=== PATIENT | female | born 1980 | race Caucasian/White ===

== ENCOUNTER 2017-08-14 03:18 | Emergency (ER) | payer MEDICAID ==
[~2017-08-14] VITALS: Ht 167.6 cm; Wt 67.5 kg
[~2017-08-14 03:18] MED LIST: DOCU-28 PO; NO HOME MEDS; PANT20TA2 PO; ZIPR20CA2 PO
[2017-08-14 03:24] VITALS: BP 139/52
[2017-08-14] MEDS ORDERED: ondansetron/PF 4mg/2ml inj IM ONE (03:45)
[2017-08-14] MEDS ORDERED: LORazepam 2 mg/ml vial IM ONE (03:50)
== END 2017-08-14 04:50 | disposition home or self-care (01) ==
LOC: ER 03:18
DX: F41.9 Anxiety disorder, unspecified (principal); Z90.49 Acquired absence of other specified parts of digestive tract; Z90.710 Acquired absence of both cervix and uterus; Z98.890 Other specified postprocedural states; Z88.5 Allergy status to narcotic agent; Z79.899 Other long term (current) drug therapy; Z88.8 Allergy status to other drugs, medicaments and biological substances
CPT/HCPCS: 96372; 99284; J2060; J2405

== ENCOUNTER 2023-06-28 14:19 | Emergency (ER) | payer MEDICAID ==
[~2023-06-28] VITALS: Ht 167.6 cm; Wt 75.1 kg
[~2023-06-28 14:19] MED LIST changes: +ALPR1TAB7 PO; +ARIP20TA4 PO; +BUSP15TA8 PO; -DOCU-28 PO; -NO HOME MEDS; +ONDA4TAB6 PO; -PANT20TA2 PO; +PROP10TA10 PO; -ZIPR20CA2 PO
[2023-06-28 14:34] VITALS: TEMP 97
[2023-06-28] MEDS ORDERED: ondansetron/PF 4mg/2ml inj IV ONE ×2 (14:40→16:15)
[2023-06-28] MEDS ORDERED: normal saline 1000ml 1,000 ML IV ONE ×3 (14:40→16:20)
[2023-06-28 15:14] LABS: BASOPHILS % (AUTO) 0.2 % (0-1); EOSINOPHILS % (AUTO) 0 % (0-6); HEMATOCRIT 47.1 % (35.0-45.0); LYMPHOCYTES # (AUTO) 1.2 X10'3 (1.1-4.8); LYMPHOCYTES % (AUTO) 14.3 % (21-51); MEAN CORPUSCULAR HEMOGLOBIN 31.7 PG (27.0-31.0); MEAN CORPUSCULAR HGB CONC 33.9 g/dL (33.0-36.5); MEAN CORPUSCULAR VOLUME 93.7 FL (78-98); MEAN PLATELET VOLUME 10.1 FL (7.4-10.4); MONOCYTES # (AUTO) 0.3 X10'3 (0-0.9); MONOCYTES % (AUTO) 3.9 % (2-12); NEUTROPHILS # (AUTO) 7.1 X10'3 (1.8-7.7); NEUTROPHILS % (AUTO) 81.6 % (42-75); PLATELET COUNT 244 X10'3 (140-440); RED BLOOD COUNT 5.03 X10'6 (4.20-5.60); RED CELL DISTRIBUTION WIDTH 13.1 % (11.5-14.5); WHITE BLOOD COUNT 8.7 X10'3 (4.5-11.0)
[2023-06-28 15:26] LABS: APTT 22 SECONDS (22-32); PROTHROMBIN TIME 10.3 SECONDS (9.0-12.0)
[2023-06-28 15:27] LABS: ALANINE AMINOTRANSFERASE 51 U/L (12-78); ALBUMIN 4.5 G/DL (3.4-5.0); ALBUMIN/GLOBULIN RATIO 1.2 (1.1-1.5); ALKALINE PHOSPHATASE 78 IU/L (46-116); AMYLASE 23 U/L (25-115); ANION GAP 15 (8-16); ASPARTATE AMINO TRANSFERASE 25 U/L (10-37); BILIRUBIN,TOTAL 0.7 MG/DL (0.1-1.0); BLOOD UREA NITROGEN 11 MG/DL (7-18); BUN/CREATININE RATIO 14.5 (10.0-20.0); CALCIUM 10.4 MG/DL (8.5-10.1); CHLORIDE 99 MMOL/L (99-107); CREATININE 0.76 MG/DL (0.40-0.90); GLUCOSE 135 MG/DL (70-104); LIPASE 20 U/L (16-77); POTASSIUM 3.2 MMOL/L (3.5-5.1); SODIUM 141 MMOL/L (135-145); TOTAL CARBON DIOXIDE 26.9 MMOL/L (24-32); TOTAL PROTEIN 8.3 G/DL (6.4-8.2); eCRCL 89 ML/MIN; eGFR 83 ML/MIN
[2023-06-28] MEDS ORDERED: pantoprazole 40 MG vial IV ONE (16:20)
[2023-06-28] MEDS ORDERED: pantoprazole 40 MG vial IV SCH (16:20)
[2023-06-28] MEDS ORDERED: potassium Cl 20 mEq SR tablet PO STA ×2 (16:20→17:30)
[2023-06-28] MEDS ORDERED: ONDA4TAB12 PO ×2 (17:09)
[2023-06-28] MEDS ORDERED: PANT-47 PO (17:09)
[2023-06-28] MEDS ORDERED: proCHLORperazine 10 MG/2 ml inj IV ONE (17:20)
[2023-06-28] MEDS ORDERED: diphenhydrAMINE 50 mg/ml inj IV ONE (17:20)
[2023-06-28 18:45] VITALS: BP 117/87; PULSE 62; RESP 16; O2SAT 100
[2023-07-05] MEDS ORDERED: PANT-47 PO (12:06)
== END 2023-06-28 19:12 | disposition home or self-care (01) ==
LOC: ER 14:20
DX: K29.00 Acute gastritis without bleeding (principal); F12.10 Cannabis abuse, uncomplicated; Z88.8 Allergy status to other drugs, medicaments and biological substances; Z79.899 Other long term (current) drug therapy
CPT/HCPCS: 36415; 71045; 80053; 82150; 83690; 85025; 85610; 85730; 96361; 96374; 96375; 99284; C9113; J0780; J1200; J2405; J7030

== ENCOUNTER 2023-12-07 13:01 | Emergency (ER) | payer MEDICAID ==
[~2023-12-07] VITALS: Ht 167.6 cm; Wt 77.9 kg
[~2023-12-07 13:01] MED LIST changes: +PANT-47 PO
[2023-12-07 14:05] LABS: BASOPHILS % (AUTO) 0.2 % (0-1); HEMATOCRIT 45.2 % (35.0-45.0); HEMOGLOBIN 15.3 g/dl (12.0-16.0); LYMPHOCYTES # (AUTO) 2.2 X10'3 (1.1-4.8); MEAN CORPUSCULAR HEMOGLOBIN 31.8 PG (27.0-31.0); MEAN CORPUSCULAR HGB CONC 33.9 g/dL (33.0-36.5); MONOCYTES # (AUTO) 0.7 X10'3 (0-0.9)
[2023-12-07 14:07] LABS: EOSINOPHILS % (AUTO) 0.2 % (0-6); LYMPHOCYTES % (AUTO) 29.8 % (21-51); MEAN CORPUSCULAR VOLUME 93.8 FL (78-98); MEAN PLATELET VOLUME 10.5 FL (7.4-10.4); MONOCYTES % (AUTO) 9.5 % (2-12); NEUTROPHILS # (AUTO) 4.5 X10'3 (1.8-7.7); NEUTROPHILS % (AUTO) 60.3 % (42-75); PLATELET COUNT 221 X10'3 (140-440); RED BLOOD COUNT 4.82 X10'6 (4.20-5.60); RED CELL DISTRIBUTION WIDTH 12.9 % (11.5-14.5); WHITE BLOOD COUNT 7.5 X10'3 (4.5-11.0)
[2023-12-07 14:10] LABS: ALANINE AMINOTRANSFERASE 42 U/L (12-78); ALBUMIN 4.3 G/DL (3.4-5.0); ALBUMIN/GLOBULIN RATIO 1.2 (1.1-1.5); ALKALINE PHOSPHATASE 76 IU/L (46-116); ANION GAP 14 (8-16); ASPARTATE AMINO TRANSFERASE 15 U/L (10-37); BLOOD UREA NITROGEN 14 MG/DL (7-18); BUN/CREATININE RATIO 17.5 (10.0-20.0); CALCIUM 9.9 MG/DL (8.5-10.1); CHLORIDE 101 MMOL/L (99-107); GLUCOSE 104 MG/DL (70-104); LIPASE 18 U/L (16-77); POTASSIUM 3.1 MMOL/L (3.5-5.1); SODIUM 138 MMOL/L (135-145); TOTAL CARBON DIOXIDE 22.7 MMOL/L (24-32); TOTAL PROTEIN 7.9 G/DL (6.4-8.2); eCRCL 85 ML/MIN; eGFR 78 ML/MIN
[2023-12-07 14:29] LABS: BILIRUBIN,URINE MODERATE (Neg); CLARITY,URINE SLIGHTLY CLOUDY (Clear); COLOR,URINE YELLOW (Yellow); GLUCOSE, URINE NEGATIVE (Neg); KETONES,URINE >=80 mg/dl (Neg); LEUKOCYTE ESTERASE ,URINE NEGATIVE (Neg); OCCULT BLOOD,URINE TRACE-INTACT (Neg); PROTEIN,URINE 30 mg/dl (Neg)
[2023-12-07 14:32] LABS: NITRITES, URINE NEGATIVE (Neg); UA COLLECTION TYPE CLN CATCH MIDSTREAM
[2023-12-07 14:35] LABS: SQUAMOUS EPITHELIAL CELL,UR MANY /LPF (FEW)
[2023-12-07 14:36] LABS: RBC,URINE NONE SEEN /HPF (0-2)
[2023-12-07 14:37] LABS: BACTERIA,URINE 2+ /HPF (Neg); MUCUS STRANDS MANY /LPF (Neg)
[2023-12-07 14:40] LABS: URINE HCG NEGATIVE (NEG)
[2023-12-07 15:25] VITALS: TEMP 99.6
[2023-12-07] MEDS: normal saline 1000ml 1,000 ML IV ONE (16:44)
[2023-12-07] MEDS: metoclopramide 5 mg/ml inj IV ONE (16:45)
[2023-12-07] MEDS: diphenhydrAMINE 50 mg/ml inj IV ONE (16:46)
[2023-12-07] MEDS: dicyclomine 10 MG capsule PO ONE (18:01)
[2023-12-07 18:36] VITALS: BP 141/86; PULSE 87; RESP 14; O2SAT 64
== END 2023-12-07 18:39 | disposition home or self-care (01) ==
LOC: ER 13:01
DX: R11.2 Nausea with vomiting, unspecified (principal); F12.90 Cannabis use, unspecified, uncomplicated; Z88.8 Allergy status to other drugs, medicaments and biological substances; Z79.899 Other long term (current) drug therapy; Z90.49 Acquired absence of other specified parts of digestive tract; Z90.710 Acquired absence of both cervix and uterus
CPT/HCPCS: 36415; 74018; 80053; 81001; 81025; 83690; 85025; 96374; 96375; 99284; J1200; J2765; J7030

== ENCOUNTER 2023-12-09 06:36 | Emergency (ER) | payer MEDICAID ==
[~2023-12-09] VITALS: Ht 167.6 cm; Wt 79.3 kg
[2023-12-09] MEDS: diphenhydrAMINE 50 mg/ml inj IV ONE (08:29)
[2023-12-09] MEDS: normal saline 1000ML IV soln IVB ONE ×2 (08:29)
[2023-12-09] MEDS: metoclopramide 5 mg/ml inj IV ONE (08:30)
[2023-12-09 09:03] LABS: BASOPHILS % (AUTO) 0.2 % (0-1); EOSINOPHILS % (AUTO) 0.3 % (0-6); HEMATOCRIT 43.2 % (35.0-45.0); HEMOGLOBIN 14.8 g/dl (12.0-16.0); LYMPHOCYTES # (AUTO) 1.3 X10'3 (1.1-4.8); LYMPHOCYTES % (AUTO) 17.8 % (21-51); MEAN CORPUSCULAR HGB CONC 34.3 g/dL (33.0-36.5); MEAN CORPUSCULAR VOLUME 93.1 FL (78-98); MEAN PLATELET VOLUME 10.9 FL (7.4-10.4); MONOCYTES # (AUTO) 0.7 X10'3 (0-0.9); MONOCYTES % (AUTO) 8.7 % (2-12); NEUTROPHILS # (AUTO) 5.5 X10'3 (1.8-7.7); PLATELET COUNT 186 X10'3 (140-440); RED BLOOD COUNT 4.64 X10'6 (4.20-5.60); RED CELL DISTRIBUTION WIDTH 12.9 % (11.5-14.5); WHITE BLOOD COUNT 7.5 X10'3 (4.5-11.0)
[2023-12-09 09:16] LABS: ALANINE AMINOTRANSFERASE 45 U/L (12-78); ALBUMIN 4.1 G/DL (3.4-5.0); ALBUMIN/GLOBULIN RATIO 1.1 (1.1-1.5); ALKALINE PHOSPHATASE 63 IU/L (46-116); ANION GAP 15 (8-16); ASPARTATE AMINO TRANSFERASE 23 U/L (10-37); BILIRUBIN,TOTAL 0.9 MG/DL (0.1-1.0); BLOOD UREA NITROGEN 13 MG/DL (7-18); BUN/CREATININE RATIO 17.1 (10.0-20.0); CALCIUM 9.4 MG/DL (8.5-10.1); CHLORIDE 101 MMOL/L (99-107); CREATININE 0.76 MG/DL (0.40-0.90); GLUCOSE 122 MG/DL (70-104); LIPASE 22 U/L (16-77); SODIUM 139 MMOL/L (135-145); TOTAL CARBON DIOXIDE 22.7 MMOL/L (24-32); TOTAL PROTEIN 7.9 G/DL (6.4-8.2); eCRCL 89 ML/MIN; eGFR 83 ML/MIN
[2023-12-09] MEDS: haloperidol lactate 5mg/ml inj IM ONE (09:35)
[2023-12-09 09:38] VITALS: TEMP 98.6
[2023-12-09] MEDS ORDERED: METO-292 PO (09:51)
[2023-12-09] MEDS ORDERED: POTA-207 PO (09:51)
[2023-12-09 10:49] LABS: BILIRUBIN,URINE NEGATIVE (Neg); CLARITY,URINE SLIGHTLY CLOUDY (Clear); COLOR,URINE YELLOW (Yellow); GLUCOSE, URINE NEGATIVE (Neg); KETONES,URINE 40 mg/dl (Neg); LEUKOCYTE ESTERASE ,URINE NEGATIVE (Neg); NITRITES, URINE NEGATIVE (Neg); OCCULT BLOOD,URINE NEGATIVE (Neg); PH,URINE 6.5 (4.8-8.0); PROTEIN,URINE NEGATIVE (Neg); UROBILINOGEN,URINE 0.2 E.U/dL (0.2-1.0)
[2023-12-09 10:54] LABS: UA COLLECTION TYPE CLN CATCH MIDSTREAM
[2023-12-09 10:55] LABS: BACTERIA,URINE 1+ /HPF (Neg); MUCUS STRANDS FEW /LPF (Neg); RBC,URINE NONE SEEN /HPF (0-2); SQUAMOUS EPITHELIAL CELL,UR MANY /LPF (FEW); WBC,URINE 0-4 /HPF (0-4)
[2023-12-09 10:58] LABS: URINE HCG NEGATIVE (NEG)
[2023-12-09 11:00] VITALS: BP 115/81; PULSE 81; RESP 16; O2SAT 98
== END 2023-12-09 11:00 | disposition home or self-care (01) ==
LOC: ER 06:37
DX: R11.15 Cyclical vomiting syndrome unrelated to migraine (principal); R10.13 Epigastric pain; R11.2 Nausea with vomiting, unspecified; F12.90 Cannabis use, unspecified, uncomplicated; F41.9 Anxiety disorder, unspecified; Z88.8 Allergy status to other drugs, medicaments and biological substances; Z79.899 Other long term (current) drug therapy; Z90.49 Acquired absence of other specified parts of digestive tract; Z90.710 Acquired absence of both cervix and uterus; Z98.890 Other specified postprocedural states
CPT/HCPCS: 36415; 80053; 81001; 81025; 83690; 85025; 96361; 96372; 96374; 96375; 99284; J1200; J1630; J2765; J7030

== ENCOUNTER 2024-10-22 06:38 | Emergency (ER) | payer MEDICAID ==
[~2024-10-22] VITALS: Ht 167.6 cm; Wt 66.3 kg
[~2024-10-22 06:38] MED LIST changes: +METO-292 PO
[2024-10-22 06:40] VITALS: TEMP 98
--- NOTE | 2024-10-22 07:13 | Physician Documentation ---
History of Present Illness ~ Chief Complaint: Abdominal Pain w/vomiting Stated Complaint: VOMITING Time Seen by MD: 06:49 Primary Medical Doctor: DR. ABBASI Mode of Arrival: Ambulatory HPI 44-year-old female with a history of anxiety and anxiety induced vomiting presenting with a nausea and vomiting that has been present for the past couple of days. Patient reports that this typically occurs when she gets anxiety attack. She is on multiple medications for anxiety but states that sometimes they do not work. These most recent symptoms have been very severe and she has not been able to keep any food or fluids down. She denies any blood in her emesis, denies any diarrhea, constipation or any other associated symptoms. The patient has Zofran and Reglan at home and states that the Zofran typically does not work. The Reglan sometimes does but on this occasion it was not working. Medication Reconciliation Allergies: Coded Allergies: paroxetine HCl (Verified Allergy, Unknown, 10/22/24) morphine (Verified Adverse Reaction, Unknown, 10/22/24) Itchy, aggitation Scheduled Aripiprazole (Abilify), 1 TAB PO HS, (Reported) Buspirone HCl (Buspirone HCl), 1 TABLET PO BID, (Reported) Pantoprazole Sodium (PROTONIX tablet), 1 TAB PO DAILY Pantoprazole Sodium (PROTONIX tablet), 40 MG PO BID Propranolol Hcl (Propranolol Hcl), 1 TAB PO BID, (Reported) Scheduled PRN Alprazolam (Alprazolam), 1 TABLET PO BID PRN for anxiety, (Reported) Metoclopramide HCl (Reglan), 1 TAB PO Q6H PRN for nausea/vomiting Ondansetron Hcl (Zofran), 4 MG PO Q6H PRN PRN for nausea/vomiting Past Medical History Past Medical History: *GI/HEPATOBILIARY*, *MUSCULOSKELETAL*, Anxiety Past Surgical History: cholecystectomy, hysterectomy, orthopedic surgeries Other Past Surgical History: pyloric sphincter dilation Alcohol Use: None Drug Use: marijuana Lives with: Spouse Lives In: Home Occupation: employed Physical Exam Vital Signs: Temperature: 98.0, Source: Oral, Heart Rate: 65, Respiratory Rate: 15, BP: 127/89, Pulse Oximetry: 98, Weight: 66.300 Physical Exam I have reviewed the triage vitals. CONST: Well developed and well nourished. In no acute distress HENT: Head Atraumatic EYES: Pupils are equal, round and reactive to light. Normal conjunctiva NECK: Normal range of motion. Supple. CARDIO: Normal rate and regular rhythm. No murmurs, rubs, or gallops. S1, S2. PULM/CHEST: No respiratory distress. Lungs clear to auscultation. No wheeze ABD: Soft and diffusely tender to palpation. Nondistended. Bowel sounds normal. No guarding. : Exam deferred MSK: No edema. No deformity. NEURO: Alert and oriented to person, place and time. Moving all extremities SKIN: Warm and dry. PSYCH: Normal mood and affect. Good eye contact. Progress Results/Orders Results/Orders Orders - NAHOMY MAZARIEGOS MD Ct Abdomen Pelvis (10/22/24 10:02) Completed Orders - NAHOMY MAZARIEGOS MD Hcg, Ur Ql (10/22/24 06:45) Cbc/Diff (10/22/24 06:45) Lipase (10/22/24 06:45) CMP (10/22/24 06:45) Electrocardiogram (10/22/24 ) Troponin (Single) (10/22/24 07:07) MG (10/22/24 07:07) Normal Saline 1000ml (Sodium Chloride 10 (10/22/24 07:10) Metoclopramide Inj (Reglan Inj) (10/22/24 07:10) Diazepam Inj (Valium Inj) (10/22/24 07:10) Prochlorperazine Inj (Compazine Inj) (10/22/24 09:30) Normal Saline 1000ml (Sodium Chloride 10 (10/22/24 09:30) Diazepam Inj (Valium Inj) (10/22/24 10:05) Ct Abdomen Pelvis (10/22/24 10:02) Ua W/Microscopic, Cult If Ind (10/22/24 09:23) Diphenhydramine Inj (Benadryl Inj.) (10/22/24 10:10) Iohexol 300mg/Ml 100ml Inj. (Omnipaque-3 (10/22/24 10:10) Haloperidol Lact. (Haldol) (10/22/24 11:45) Potassium Cl Sr Tablet (K-Dur Tablet) (10/22/24 11:46) Medications Received in ER Medications (Trade) Dose Ordered Sig/Shy Route PRN Reason Start Time Stop Time Status Last Admin Dose Admin Sodium Chloride 1,000 ml @ 1,000 mls/hr ONCE ONCE IV 10/22/24 07:10 10/22/24 08:09 DC 10/22/24 08:43 1,000 MLS/HR (Reglan inj) 10 mg ONCE ONCE IV 10/22/24 07:10 10/22/24 07:12 DC 10/22/24 08:39 10 MG (Valium inj) 5 mg ONCE ONCE IV 10/22/24 07:10 10/22/24 07:11 DC 10/22/24 08:41 5 MG (Compazine inj) 10 mg ONCE ONCE IV 10/22/24 09:30 10/22/24 09:31 DC 10/22/24 09:42 10 MG Sodium Chloride 1,000 ml @ 1,000 mls/hr ONCE ONCE IV 10/22/24 09:30 10/22/24 10:29 DC 10/22/24 09:43 1,000 MLS/HR (Valium inj) 10 mg ONCE ONCE IV 10/22/24 10:05 10/22/24 10:06 DC 10/22/24 10:15 10 MG (Benadryl inj.) 50 mg ONCE ONCE IV 10/22/24 10:10 10/22/24 10:11 DC 10/22/24 10:22 50 MG (Haldol) 5 mg ONCE ONCE IM 10/22/24 11:45 10/22/24 11:48 DC 10/22/24 11:53 5 MG (K-DUR tablet) 20 meq ONCE STAT PO 10/22/24 11:46 10/22/24 11:48 DC 10/22/24 11:52 20 MEQ Vital Signs 10/22/24 10/22/24 10/22/24 10/22/24 06:40 07:02 07:03 09:47 Temp 98.0 Pulse 61 65 70 Resp 15 15 15 15 B/P (MAP) 129/69 127/89 (102) 130/79 (96) Pulse Ox 98 98 94 10/22/24 11:56 Pulse 53 Resp 15 B/P (MAP) 125/85 (98) Pulse Ox 99 Laboratory Tests Test 10/22/24 08:35 10/22/24 09:23 White Blood Count 7.5 Red Blood Count 4.54 Hemoglobin 14.3 Hematocrit 42.1 Mean Corpuscular Volume 92.7 Mean Corpuscular Hemoglobin 31.5 H Mean Corpuscular Hemoglobin Concent 34.0 Red Cell Distribution Width 13.5 Platelet Count 233 Mean Platelet Volume 10.2 Neutrophils (%) (Auto) 73.7 Lymphocytes (%) (Auto) 19.6 L Monocytes (%) (Auto) 6.0 Eosinophils (%) (Auto) 0.4 Basophils (%) (Auto) 0.3 Neutrophils # (Auto) 5.6 Lymphocytes # (Auto) 1.5 Monocytes # (Auto) 0.5 Eosinophils # (Auto) 0.0 Basophils # (Auto) 0.0 CBC Comment Sodium Level 140 Potassium Level 3.4 L Chloride Level 104 Carbon Dioxide Level 23.4 L Anion Gap 13 Blood Urea Nitrogen 10 Creatinine 0.73 Estimated GFR/1.73 m2 87 BUN/Creatinine Ratio 13.7 Glucose Level 138 H Calcium Level 9.5 Magnesium Level 1.8 Total Bilirubin 0.6 Aspartate Amino Transf (AST/SGOT) 20 Alanine Aminotransferase (ALT/SGPT) 34 Alkaline Phosphatase 85 Troponin I High Sensitivity < 4 L Total Protein 7.1 Albumin 3.9 Globulin 3.2 Albumin/Globulin Ratio 1.2 Lipase 143 H Chemistry Comments Urine Specimen Description Urinal Urine Color Yellow Urine Clarity Clear Urine pH 6.0 Urine Specific [place] 1.020 Urine Protein Trace Urine Glucose (UA) Negative Urine Ketones >=80 Urine Occult Blood Negative Urine Nitrite Negative Urine Bilirubin Small Urine Urobilinogen 0.2 Urine Leukocyte Esterase Negative Urine RBC 0-2 Urine WBC 0-4 Urine Squamous Epithelial Cells Moderate Urine Bacteria Few Urine Mucus Moderate Urine Culture Indicated Not ind Volume Urine Centrifuged 10 ml Urine HCG, Qualitative Negative Urine Comment EKG/XRAY/CT/US/VASC/MRI EKG : Additional Comment EKG as interpreted by ED MD indicates sinus bradycardia with a rate of 52 beats per minute. No ischemia. Normal axis. CT : Impression Exam: CT CT ABDOMEN PELVIS W/ IV CONTRAST History: elevated lipase COMPARISON: CT CT ABDOMEN PELVIS on DOS: 07/03/23 Technique: Multidetector spiral CT of the abdomen and pelvis was performed from lung bases to pubic symphysis. Intravenous contrast was administered during this examination. Portal venous imaging was obtained. Axial, coronal and sagittal multiplanar reformats were performed by the technologist on a separate workstation. Radiation Dose : 1. Abdomen/Pelvis: CTDIvol 34 mGy, DLP 1757 mGy*cm. CONTRAST: Type of contrast: Omnipaque 350 Contrast injected: 100 ml Findings: Lung Bases: No acute or significant lung base finding. Normal heart size. No pleural or pericardial effusion. Liver: The liver is normal in size. No focal lesions. Normal hepatic vascular enhancement. Gallbladder and Biliary Tree: Gallbladder is surgically absent. Spleen: Unremarkable Pancreas: The pancreas is normal in appearance without focal lesions or abnormal enhancement. Adrenal Glands: Unremarkable Kidneys: No hydronephrosis. Bladder: Unremarkable Bowel: The stomach is grossly normal in appearance. Concentric wall thickening throughout the colon suggestive of infectious/inflammatory colitis. The appendix is not visualized; however, no secondary findings of acute appendicitis identified. Ascites: Absent Lymphadenopathy: No mesenteric, retroperitoneal or periportal lymphadenopathy. Abdominal Wall and Mesentery: Unremarkable. Vasculature: The visualized abdominal aorta is normal in size and caliber. Abdominal and pelvic vessels demonstrate normal enhancement. Pelvic Organs: Unremarkable Musculoskeletal: No aggressive focal bony lesions, acute fractures or dislocation. IMPRESSION: 1. Concentric wall thickening throughout the colon is suggestive of infectious/inflammatory colitis. Medical Decision Making Additional Comments 44-year-old female with a history of anxiety and vomiting syndrome presenting for acute onset nausea and vomiting. Patient initially extremely nauseous. She was given 10 mg of IV Reglan as well as 10 mg of IV Compazine. This did not stop her nausea and thus she was given 50 mg of IV Benadryl as well. Finally she was given 5 mg of IM Haldol due to the intractable vomiting and this seemed to resolve her symptoms. The patient was also very anxious and was given a total of 15 mg of IV Valium which helped resolve her anxiety. Patient was given 2 L of IV normal saline. It appears that these nausea and vomiting symptoms coincide with her anxiety and the patient did also endorse this. Patient likely needs better management of her chronic anxiety disorder which would help also resolve these frequent bouts of nausea and vomiting. We did do a CT of the abdomen and pelvis as well to rule out any other pathology. It did indicate some nonspecific colitis but nothing else acute. Patient did have a slightly elevated lipase level but there are no signs of any pancreatitis and the patient did not endorse any severe abdominal pain. Patient states that she only very occasionally drinks alcohol but her daughter did confirm that the patient does drink beer daily. I advised the patient that she should cut back on her alcohol use as this may be exacerbating her symptoms. At this point in time the patient is clinically improved. Her vitals are and have remained normal in the ED. she is able to tolerate p.o. fluids and is stable and safe for discharge home. I advised her to start with a clear liquid diet and advance as tolerated. I will also prescribe her several tablets of 1 mg Ativan, 10 tablets for her anxiety but advise her to use these judiciously. Cures was checked and no suspicious activity was noticed. I will also prescribe her some tablets of Reglan for symptomatic treatment. Follow up with PCP in the next 2-3 days. Return to the ED with any acutely worsening symptoms. Departure Disposition: 01 HOME / SELF CARE / HOMELESS Impression: Primary Impression: Anxiety Additional Impression: Cyclic vomiting syndrome Condition: Improved Discharge Instructions: Cyclic Vomiting Syndrome, Adult Additional Instructions: Take medications as prescribed. Drink plenty of fluids and abstain from using any alcohol. Start with a clear liquid diet and then advance as tolerated. Follow up with PCP in the next 2-3 days. Return to the ED with any acutely worsening symptoms. Referrals: NO PRIMARY CARE PROVIDER (PCP) Prescriptions Metoclopramide HCl (Reglan) 10 Mg Tablet 1 TAB PO Q8H for 30 Days, #90 TAB 0 Refills before food and bedtime Prov: NAHOMY MAZARIEGOS MD 10/22/24 Lorazepam (Ativan) 1 Mg Tablet 1 TAB PO Q12H PRN PRN for anxiety for 5 Days, #10 TAB 0 Refills Prov: NAHOMY MAZARIEGOS MD 10/22/24 Signature Scribe Signature: 1 Attestation: 1 NAHOMY MAZARIEGOS MD October 22, 2024 07:13
--- NOTE | 2024-10-22 08:27 | ELECTROCARDIOGRAPH REPORT ---
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
[2024-10-22] MEDS: metoclopramide 5 mg/ml inj IV ONE (08:39)
[2024-10-22] MEDS: diazepam inj 5 MG/ML inj. IV ONE ×2 (08:41→10:15)
[2024-10-22] MEDS: normal saline 1000ml 1,000 ML IV ONE ×2 (08:43→09:43)
[2024-10-22 09:08] LABS: BASOPHILS % (AUTO) 0.3 % (0-1); EOSINOPHILS % (AUTO) 0.4 % (0-6); HEMATOCRIT 42.1 % (35.0-45.0); HEMOGLOBIN 14.3 g/dl (12.0-16.0); LYMPHOCYTES # (AUTO) 1.5 X10'3 (1.1-4.8); LYMPHOCYTES % (AUTO) 19.6 % (21-51); MEAN CORPUSCULAR HEMOGLOBIN 31.5 PG (27.0-31.0); MEAN CORPUSCULAR VOLUME 92.7 FL (78-98); MEAN PLATELET VOLUME 10.2 FL (7.4-10.4); MONOCYTES # (AUTO) 0.5 X10'3 (0-0.9); NEUTROPHILS # (AUTO) 5.6 X10'3 (1.8-7.7); NEUTROPHILS % (AUTO) 73.7 % (42-75); PLATELET COUNT 233 X10'3 (140-440); RED BLOOD COUNT 4.54 X10'6 (4.20-5.60); RED CELL DISTRIBUTION WIDTH 13.5 % (11.5-14.5); WHITE BLOOD COUNT 7.5 X10'3 (4.5-11.0)
[2024-10-22 09:30] LABS: ALANINE AMINOTRANSFERASE 34 U/L (12-78); ALBUMIN 3.9 G/DL (3.4-5.0); ALBUMIN/GLOBULIN RATIO 1.2 (1.1-1.5); ALKALINE PHOSPHATASE 85 IU/L (46-116); ANION GAP 13 (8-16); ASPARTATE AMINO TRANSFERASE 20 U/L (10-37); BILIRUBIN,TOTAL 0.6 MG/DL (0.1-1.0); CALCIUM 9.5 MG/DL (8.5-10.1); CHLORIDE 104 MMOL/L (99-107); CREATININE 0.73 MG/DL (0.40-0.90); GLUCOSE 138 MG/DL (70-104); LIPASE 143 U/L (16-77); MAGNESIUM 1.8 MG/DL (1.5-2.4); POTASSIUM 3.4 MMOL/L (3.5-5.1); SODIUM 140 MMOL/L (135-145); TOTAL CARBON DIOXIDE 23.4 MMOL/L (24-32); TOTAL PROTEIN 7.1 G/DL (6.4-8.2); eCRCL 92 ML/MIN; eGFR 87 ML/MIN
[2024-10-22 09:33] LABS: BLOOD UREA NITROGEN 10 MG/DL (7-18); BUN/CREATININE RATIO 13.7 (10.0-20.0)
[2024-10-22] MEDS: proCHLORperazine 10 MG/2 ml inj IV ONE (09:42)
[2024-10-22 09:52] LABS: BILIRUBIN,URINE SMALL (Neg); CLARITY,URINE CLEAR (Clear); COLOR,URINE YELLOW (Yellow); GLUCOSE, URINE NEGATIVE (Neg); KETONES,URINE >=80 mg/dl (Neg); LEUKOCYTE ESTERASE ,URINE NEGATIVE (Neg); NITRITES, URINE NEGATIVE (Neg); OCCULT BLOOD,URINE NEGATIVE (Neg); PROTEIN,URINE TRACE mg/dl (Neg); UROBILINOGEN,URINE 0.2 E.U/dL (0.2-1.0)
[2024-10-22 09:54] LABS: URINE HCG NEGATIVE (NEG)
[2024-10-22 10:08] LABS: UA COLLECTION TYPE URINAL
[2024-10-22 10:09] LABS: BACTERIA,URINE FEW /HPF (Neg); RBC,URINE 0-2 /HPF (0-2); SQUAMOUS EPITHELIAL CELL,UR MODERATE /LPF (FEW); WBC,URINE 0-4 /HPF (0-4)
[2024-10-22 10:10] LABS: MUCUS STRANDS MODERATE /LPF (Neg)
[2024-10-22] MEDS ORDERED: iohexol 300mg/ml 100ml inj. ONE (10:10)
[2024-10-22] MEDS: diphenhydrAMINE 50 mg/ml inj IV ONE (10:22)
--- NOTE | 2024-10-22 10:49 | RADIOLOGY REPORT ---
Exam: CT CT ABDOMEN PELVIS W/ IV CONTRAST History: elevated lipase COMPARISON: CT CT ABDOMEN PELVIS on DOS: 07/03/23 Technique: Multidetector spiral CT of the abdomen and pelvis was performed from lung bases to pubic s ymphysis. Intravenous contrast was administered during this examination. Portal venous imaging was obtained. Axial, coronal and sagittal multiplanar reformats were performed by the technologist on a separate workstation. Radiation Dose : 1. Abdomen/Pelvis: CTDIvol 34 mGy, DLP 1757 mGy*cm. CONTRAST: Type of contrast: Omnipaque 350 Contrast injected: 100 ml Findings: Lung Bases: No acute or significant lung base finding. Normal heart size. No pleural or pericardial effusion. Liver: The liver is normal in size. No focal lesions. Normal hepatic vascular enhancement. Gallbladder and Biliary Tree: Gallbladder is surgically absent. Spleen: Unremarkable Pancreas: The pancreas is normal in appearance without focal lesions or abnormal enhancement. Adrenal Glands: Unremarkable Kidneys: No hydronephrosis. Bladder: Unremarkable Bowel: The stomach is grossly normal in appearance. Concentric wall thickening throughout the colon s uggestive of infectious/inflammatory colitis. The appendix is not visualized; however, no secondary f indings of acute appendicitis identified. Ascites: Absent Lymphadenopathy: No mesenteric, retroperitoneal or periportal lymphadenopathy. Abdominal Wall and Mesentery: Unremarkable. Vasculature: The visualized abdominal aorta is normal in size and caliber. Abdominal and pelvic vess els demonstrate normal enhancement. Pelvic Organs: Unremarkable Musculoskeletal: No aggressive focal bony lesions, acute fractures or dislocation. IMPRESSION: 1. Concentric wall thickening throughout the colon is suggestive of infectious/inflammatory colitis. Radiation optimization: All CT scans at this facility use at least one of these dose optimization cherie hniques: automated exposure control mA and/or kV adjustment per patient size (includes targeted exam s where dose is matched to clinical indication) or iterative reconstruction.
[2024-10-22] MEDS: potassium Cl 20 mEq SR tablet PO STA (11:52)
[2024-10-22] MEDS: haloperidol lactate 5mg/ml inj IM ONE (11:53)
[2024-10-22] MEDS ORDERED: LORA-269 PO (13:54)
[2024-10-22] MEDS ORDERED: METO-292 PO (13:54)
[2024-10-22 14:00] VITALS: BP 109/71; PULSE 67; RESP 15; O2SAT 98
== END 2024-10-22 14:09 | disposition home or self-care (01) ==
LOC: ER 06:39
DX: F41.9 Anxiety disorder, unspecified (principal); R11.2 Nausea with vomiting, unspecified; Z88.5 Allergy status to narcotic agent; Z88.8 Allergy status to other drugs, medicaments and biological substances; Z90.49 Acquired absence of other specified parts of digestive tract; Z90.710 Acquired absence of both cervix and uterus
CPT/HCPCS: 36415; 74177; 80053; 81001; 81025; 83690; 83735; 84484; 85025; 93005; 96361; 96372; 96374; 96375; 96376; 99285; A6258; J0780; J1200; J1630; J2765; J3360; J7030; Q9967

== ENCOUNTER 2024-12-16 03:08 | Emergency (ER) | payer MEDICAID ==
[~2024-12-16] VITALS: Ht 167.6 cm; Wt 63.5 kg
[~2024-12-16 03:08] MED LIST changes: +LORA-269 PO
[2024-12-16] MEDS: ondansetron/PF 4mg/2ml inj IV ONE (04:21)
[2024-12-16] MEDS: normal saline 1000ML IV soln IVB ONE ×2 (04:22→06:51)
[2024-12-16] MEDS ORDERED: ONDA-245 PO (06:19)
--- NOTE | 2024-12-16 06:20 | Physician Documentation ---
History of Present Illness ~ Chief Complaint: Vomiting Stated Complaint: VOMITING Time Seen by MD: 03:37 Primary Medical Doctor: DR. ABBASI Source: patient Mode of Arrival: POV Exam Limitations: no limitations HPI Chief Complaint: Nausea and vomiting Caveat: None Independent Historians: None History of Present Illness: Patient is a 44-year-old woman who comes in complaining of nausea and vomiting for four days. Patient states that this is related to her anxiety that has gotten a lot worse this last week. Patient states that this has occurred before and that usually her Reglan and Ativan that she takes at home alleviates the nausea and vomiting. Patient states that she also has always had a sensitive stomach and frequently has nausea. Patient denies any abdominal pain. Patient denies any diarrhea. No fever. No chest pain, no shortness a breath. Patient does not have any other acute symptoms. Patient is confident that her symptoms are recurrent secondary to her nausea. Review of systems: All systems were reviewed and are negative except for what is indicated in the history of present illness. Past Medical History: Anxiety, bipolar, frequent nausea and vomiting Past Surgical History: Cholecystectomy Social History: No tobacco use, no alcohol use, no drug use Medications: Reviewed as documented Nursing Notes Allergies: Reviewed as documented in Nursing Notes Medication Reconciliation Allergies: Coded Allergies: paroxetine HCl (Verified Allergy, Unknown, 12/16/24) morphine (Verified Adverse Reaction, Unknown, 12/16/24) Itchy, aggitation Scheduled Aripiprazole (Abilify), 1 TAB PO HS, (Reported) Buspirone HCl (Buspirone HCl), 1 TABLET PO BID, (Reported) Metoclopramide HCl (Reglan), 1 TAB PO Q8H Ondansetron 8mg ODT (Ondansetron Odt), 1 TAB PO Q8H Pantoprazole Sodium (PROTONIX tablet), 1 TAB PO DAILY Pantoprazole Sodium (PROTONIX tablet), 40 MG PO BID Propranolol Hcl (Propranolol Hcl), 1 TAB PO BID, (Reported) Scheduled PRN Alprazolam (Alprazolam), 1 TABLET PO BID PRN for anxiety, (Reported) Lorazepam (Ativan), 1 TAB PO Q12H PRN PRN for anxiety Metoclopramide HCl (Reglan), 1 TAB PO Q6H PRN for nausea/vomiting Ondansetron Hcl (Zofran), 4 MG PO Q6H PRN PRN for nausea/vomiting Past Medical History Past Medical History: *GI/HEPATOBILIARY*, *MUSCULOSKELETAL*, Anxiety Past Surgical History: cholecystectomy, hysterectomy, orthopedic surgeries Other Past Surgical History: pyloric sphincter dilation Smoking Status: Never smoker Alcohol Use: None Drug Use: marijuana Lives with: Spouse Lives In: Home Occupation: employed Review of Systems All Other Systems at this time: Reviewed and Negative ROS Patient denies any other acute symptoms other than above. All other systems are negative Physical Exam Vital Signs: RN Vital Signs have been reviewed: Yes, Temperature: 96.8, Source: Temporal, Heart Rate: 68, Respiratory Rate: 16, BP: 124/84, Pulse Oximetry: 98, Weight: 63.500 Pulse Oximetry Reflects: adequate oxygenation Physical Exam General Appearance: Mild distress HEENT: Normal OP, moist oral mucosa, PERRL, EOMI Neck: supple, normal ROM, trachea midline Pulmonary: No respiratory distress, CTA, BS equal Cardiac: RRR, no murmur, rub or gallop, GI: nondistended, soft, nontender, normal bowel sounds, no guarding, no rebound Extremities: normal ROM, no swelling, non-tender Skin: intact, dry, warm, no rashes Neuro: AAOx3, speech is clear, no focal motor weakness Psych: normal affect, good eye contact, no apparent hallucination, normal speech Progress Results/Orders Results/Orders Orders - RASHAD CHOU MD Monitor (12/16/24 03:41) Saline Lock (12/16/24 03:41) Po Challenge (12/16/24 06:20) Completed Orders - RASHAD CHOU MD Ondansetron Inj. (Zofran 4mg/2ml Vial) (12/16/24 03:45) Normal Saline 1000ml (0.9% Sodium Chlori (12/16/24 03:45) Lorazepam Inj (Ativan Inj) (12/16/24 04:40) Prochlorperazine Inj (Compazine Inj) (12/16/24 04:40) Pantoprazole 40mg Iv (Protonix 40mg Iv) (12/16/24 06:37) CMP (12/16/24 06:37) Cbc/Diff (12/16/24 06:37) Lipase (12/16/24 06:37) Normal Saline 1000ml (0.9% Sodium Chlori (12/16/24 06:40) Vital Signs 12/16/24 12/16/24 12/16/24 12/16/24 03:23 04:24 04:25 05:37 Temp 96.8 Pulse 88 66 68 Resp 15 18 16 16 B/P (MAP) 100/61 108/67 (81) 124/84 (97) Pulse Ox 98 98 98 12/16/24 12/16/24 12/16/24 06:37 07:35 07:49 Temp 96.8 Pulse 58 74 67 Resp 18 18 18 B/P (MAP) 113/79 (90) 118/71 (87) 118/71 Pulse Ox 98 97 100 O2 Flow Rate 0 0 Laboratory Tests Test 12/16/24 07:07 White Blood Count 9.6 Red Blood Count 4.32 Hemoglobin 13.8 Hematocrit 40.4 Mean Corpuscular Volume 93.5 Mean Corpuscular Hemoglobin 31.9 H Mean Corpuscular Hemoglobin Concent 34.1 Red Cell Distribution Width 13.5 Platelet Count 204 Mean Platelet Volume 10.1 Neutrophils (%) (Auto) 70.7 Lymphocytes (%) (Auto) 20.4 L Monocytes (%) (Auto) 8.4 Eosinophils (%) (Auto) 0.3 Basophils (%) (Auto) 0.2 Neutrophils # (Auto) 6.8 Lymphocytes # (Auto) 2.0 Monocytes # (Auto) 0.8 Eosinophils # (Auto) 0.0 Basophils # (Auto) 0.0 CBC Comment Sodium Level 136 Potassium Level 3.1 L Chloride Level 103 Carbon Dioxide Level 25.0 Anion Gap 8 Blood Urea Nitrogen 15 Creatinine 0.55 Estimated GFR/1.73 m2 > 90 BUN/Creatinine Ratio 27.3 H Glucose Level 114 H Calcium Level 9.0 Total Bilirubin 0.8 Aspartate Amino Transf (AST/SGOT) 18 Alanine Aminotransferase (ALT/SGPT) 34 Alkaline Phosphatase 66 Total Protein 6.8 Albumin 3.9 Globulin 2.9 Albumin/Globulin Ratio 1.3 Lipase 22 Chemistry Comments Re-Evaluation Re-Evaluation : Re-Evaluation Time: 07:39 Progress Assumed care from Dr. Chou on his departure, in order to check labs and recheck patient. Labs are unremarkable except for a slightly low potassium, which the patient states is usual for her. She has supplementation at home, and feels that she will be fine to take her supplements when she gets home. She likely would have increased vomiting here if given a dose in the ED. Patient has been sipping water without vomiting and feels ready to go home, sleep, and res ume her normal medications, which include Protonix. She understands she should return immediately if she should have any worsening or any change in her symptoms, and feels comfortable with her discharge plan. Shelby Fournier MD Medical Decision Making Findings Differential diagnosis includes but is not limited to: VOMITING SYNDROME, GASTROPARESIS, ANXIETY Emergency department course/medical decision-making: Patient is a 44-year-old woman who presents with intractable nausea and vomiting. Patient is confident that her nausea and vomiting secondary to anxiety that has gotten much worse as this has frequently occurred in the past. Patient is given IV Zofran with little relief. Patient is then given IV Compazine 10 mg IV and Ativan 1.5 mg IV. Patient given 1 L of normal saline. 6:15 a.m.. Patient re-evaluated. Patient states that she still feels nauseated. Patient vomited once that appears to be bilious. Lab work will be ordered and patient will be given additional 500 cc of normal saline. Consultation/communications: 6:30 a.m.. Care the patient will be transferred to Dr. Fournier to follow up with lab work. Departure Time of Disposition: 06:18 Disposition: 01 HOME / SELF CARE / HOMELESS Impression: Primary Impression: Nausea and vomiting Qualified Codes: R11.2 - Nausea with vomiting, unspecified Additional Impression: Anxiety Condition: Stable Discharge Instructions: Nausea and Vomiting, Adult Additional Instructions: FOLLOW UP WITH YOUR PRIMARY CARE DOCTOR NEEDED. RETURN TO THE EMERGENCY DEPARTMENT IF YOUR SYMPTOMS RETURN OR WORSEN. Prescriptions Ondansetron 8mg ODT (Ondansetron Odt) 8 Mg Tab.rapdis 1 TAB PO Q8H for nausea/vomiting, #10 TAB 0 Refills Prov: RASHAD CHOU MD 12/16/24 Education Educated: Patient Educated regarding: diagnosis, treatment, need for follow up Signature Scribe Signature: No scribe Attestation: No scribe RASHAD CHOU MD Dec 16, 2024 06:20 SHARI FOURNIER MD Dec 16, 2024 07:40
[2024-12-16 07:20] LABS: MEAN PLATELET VOLUME 10.1 FL (7.4-10.4); RED CELL DISTRIBUTION WIDTH 13.5 % (11.5-14.5)
[2024-12-16 07:29] LABS: CREATININE 0.55 MG/DL (0.40-0.90); TOTAL CARBON DIOXIDE 25.0 MMOL/L (24-32); eCRCL 122 ML/MIN; eGFR > 90 ML/MIN
[2024-12-16 07:49] VITALS: BP 118/71; PULSE 67; RESP 18; TEMP 96.8; O2SAT 100
[2024-12-17] MEDS ORDERED: PROC25SU31 RC (07:50)
== END 2024-12-16 07:50 | disposition home or self-care (01) ==
LOC: ER 03:09
DX: R11.2 Nausea with vomiting, unspecified (principal); F41.9 Anxiety disorder, unspecified; F12.90 Cannabis use, unspecified, uncomplicated; F31.9 Bipolar disorder, unspecified; Z90.49 Acquired absence of other specified parts of digestive tract; Z88.8 Allergy status to other drugs, medicaments and biological substances; Z90.710 Acquired absence of both cervix and uterus; Z88.5 Allergy status to narcotic agent; Z79.899 Other long term (current) drug therapy
CPT/HCPCS: 36415; 80053; 83690; 85025; 96361; 96374; 96375; 99285; J0780; J2060; J2405; J2470; J7030; J7040; 99284

== ENCOUNTER 2024-12-17 01:21 | Emergency (ER) | payer MEDICAID ==
[~2024-12-17] VITALS: Ht 167.6 cm; Wt 77.3 kg
[~2024-12-17 01:21] MED LIST changes: +ONDA-245 PO
[2024-12-17 01:27] VITALS: TEMP 97.5
[2024-12-17] MEDS: normal saline 1000ML IV soln IVB ONE (02:32)
[2024-12-17] MEDS: diazepam inj 5 MG/ML inj. IV ONE ×2 (02:35→05:17)
[2024-12-17] MEDS: haloperidol lactate 5mg/ml inj IM ONE (02:36)
[2024-12-17 02:41] LABS: MEAN PLATELET VOLUME 10.2 FL (7.4-10.4); RED CELL DISTRIBUTION WIDTH 13.8 % (11.5-14.5)
[2024-12-17 02:48] LABS: CREATININE 0.56 MG/DL (0.40-0.90); TOTAL CARBON DIOXIDE 25.9 MMOL/L (24-32); eCRCL 120 ML/MIN; eGFR > 90 ML/MIN
[2024-12-17] MEDS: POTASSIUM BICARB 20meq eff tab 20 MEQ TABLET.EFF PO ONE (04:04)
[2024-12-17] MEDS: potassium Cl 20 mEq SR tablet PO STA (04:10)
--- NOTE | 2024-12-17 04:51 | Physician Documentation ---
History of Present Illness ~ Chief Complaint: Nausea Stated Complaint: VOMITING Time Seen by MD: 01:44 Primary Medical Doctor: DR. ABBASI Source: patient Mode of Arrival: POV Exam Limitations: no limitations HPI Chief Complaint: Nausea and vomiting Caveat: None Independent Historians: None History of Present Illness: Patient is a 44-year-old woman who comes in complaining of nausea and vomiting for four days. Patient states that this is related to her anxiety that has gotten a lot worse this last week. Patient was seen last night for the same thing. She was given IV Ativan, IV Zofran and IV Compazine and finally improved and was discharged. Patient comes back in complaining of recurrent severe anxiety and nausea and vomiting all day. This is been day five and she has not been eating for the last 4-5 days. Patient states that this has occurred before and that usually her Reglan and Ativan that she takes at home alleviates the nausea and vomiting. Patient states that she also has always had a sensitive stomach and frequently has nausea. Patient denies any abdominal pain. Patient denies any diarrhea. No fever. No chest pain, no shortness a breath. Patient does not have any other acute symptoms. Patient is confident that her symptoms are recurrent secondary to her nausea. Review of systems: All systems were reviewed and are negative except for what is indicated in the history of present illness. Past Medical History: Anxiety, bipolar, frequent nausea and vomiting Past Surgical History: Cholecystectomy Social History: No tobacco use, no alcohol use, no drug use Medications: Reviewed as documented Nursing Notes Allergies: Reviewed as documented in Nursing Notes Medication Reconciliation Allergies: Coded Allergies: paroxetine HCl (Verified Allergy, Unknown, 12/17/24) morphine (Verified Adverse Reaction, Unknown, 12/17/24) Itchy, aggitation Scheduled Aripiprazole (Abilify), 1 TAB PO HS, (Reported) Buspirone HCl (Buspirone HCl), 1 TABLET PO BID, (Reported) Metoclopramide HCl (Reglan), 1 TAB PO Q8H Ondansetron 8mg ODT (Ondansetron Odt), 1 TAB PO Q8H Pantoprazole Sodium (PROTONIX tablet), 1 TAB PO DAILY Pantoprazole Sodium (PROTONIX tablet), 40 MG PO BID Propranolol Hcl (Propranolol Hcl), 1 TAB PO BID, (Reported) Scheduled PRN Alprazolam (Alprazolam), 1 TABLET PO BID PRN for anxiety, (Reported) Lorazepam (Ativan), 1 TAB PO Q12H PRN PRN for anxiety Metoclopramide HCl (Reglan), 1 TAB PO Q6H PRN for nausea/vomiting Ondansetron Hcl (Zofran), 4 MG PO Q6H PRN PRN for nausea/vomiting Past Medical History Past Medical History: *GI/HEPATOBILIARY*, *MUSCULOSKELETAL*, Anxiety Past Surgical History: cholecystectomy, hysterectomy, orthopedic surgeries Other Past Surgical History: pyloric sphincter dilation Alcohol Use: None Drug Use: marijuana Lives with: Spouse Lives In: Home Occupation: employed Review of Systems All Other Systems at this time: Reviewed and Negative ROS Patient denies any other acute symptoms other than above. All other systems are negative Physical Exam Vital Signs: RN Vital Signs have been reviewed: Yes, Temperature: 97.5, Source: Temporal, Heart Rate: 72, Respiratory Rate: 16, BP: 113/70, Pulse Oximetry: 98, Weight: 77.300 Oxygen Flow Rate: 0 Pulse Oximetry Reflects: adequate oxygenation Physical Exam General Appearance: Moderate distress HEENT: Normal OP, moist oral mucosa, PERRL, EOMI Neck: supple, normal ROM, trachea midline Pulmonary: No respiratory distress, CTA, BS equal Cardiac: RRR, no murmur, rub or gallop, GI: nondistended, soft, nontender, normal bowel sounds, no guarding, no rebound Extremities: normal ROM, no swelling, non-tender Skin: intact, dry, warm, no rashes Neuro: AAOx3, speech is clear, no focal motor weakness Psych: normal affect, good eye contact, no apparent hallucination, normal speech Progress Results/Orders Results/Orders Orders - RASHAD GREGORY MD Monitor (12/17/24 01:44) Saline Lock (12/17/24 01:44) Po Challenge (12/17/24 04:41) Completed Orders - RASHAD GREGORY MD Cbc/Diff (12/17/24 01:44) Normal Saline 1000ml (0.9% Sodium Chlori (12/17/24 01:45) BMP (12/17/24 01:44) Diazepam Inj (Valium Inj) (12/17/24 01:45) Haloperidol Lact. (Haldol) (12/17/24 01:45) Potassium Bicarb 20meq Eff Tab (Effer-K (12/17/24 03:20) Potassium Cl Sr Tablet (K-Dur Tablet) (12/17/24 04:03) Diazepam Inj (Valium Inj) (12/17/24 05:05) Prochlorperazine Inj (Compazine Inj) (12/17/24 05:05) Pantoprazole 40mg Iv (Protonix 40mg Iv) (12/17/24 05:03) Medications Received in ER Medications (Trade) Dose Ordered Sig/Shy Route PRN Reason Start Time Stop Time Status Last Admin Dose Admin (0.9% sodium chloride (NS) 1000ml IV soln) 1,000 ml ONCE ONCE IVB 12/17/24 01:45 12/17/24 01:57 DC 12/17/24 02:32 1,000 ML (Valium inj) 5 mg ONCE ONCE IV 12/17/24 01:45 12/17/24 01:57 DC 12/17/24 02:35 5 MG (Haldol) 5 mg ONCE ONCE IM 12/17/24 01:45 12/17/24 01:57 DC 12/17/24 02:36 5 MG (K-DUR tablet) 40 meq ONCE STAT PO 12/17/24 04:03 12/17/24 04:04 DC 12/17/24 04:10 40 MEQ (Valium inj) 5 mg ONCE ONCE IV 12/17/24 05:05 12/17/24 05:14 DC 12/17/24 05:17 5 MG (Compazine inj) 10 mg ONCE ONCE IV 12/17/24 05:05 12/17/24 05:14 DC 12/17/24 05:18 10 MG (Protonix 40mg IV) 40 mg NOW STAT IV 12/17/24 05:03 12/17/24 05:14 DC 12/17/24 05:18 40 MG Vital Signs 12/17/24 12/17/24 12/17/24 12/17/24 01:27 02:45 02:47 05:27 Temp 97.5 Pulse 64 72 53 Resp 18 16 16 B/P (MAP) 122/71 113/70 (84) 130/77 (94) Pulse Ox 98 98 100 O2 Flow Rate 0 Laboratory Tests Test 12/17/24 02:30 White Blood Count 10.7 Red Blood Count 4.36 Hemoglobin 13.5 Hematocrit 40.5 Mean Corpuscular Volume 93.0 Mean Corpuscular Hemoglobin 30.9 Mean Corpuscular Hemoglobin Concent 33.3 Red Cell Distribution Width 13.8 Platelet Count 204 Mean Platelet Volume 10.2 Neutrophils (%) (Auto) 78.0 H Lymphocytes (%) (Auto) 15.2 L Monocytes (%) (Auto) 6.2 Eosinophils (%) (Auto) 0.2 Basophils (%) (Auto) 0.4 Neutrophils # (Auto) 8.3 H Lymphocytes # (Auto) 1.6 Monocytes # (Auto) 0.7 Eosinophils # (Auto) 0.0 Basophils # (Auto) 0.0 CBC Comment Sodium Level 137 Potassium Level 3.1 L Chloride Level 100 Carbon Dioxide Level 25.9 Anion Gap 11 Blood Urea Nitrogen 13 Creatinine 0.56 Estimated GFR/1.73 m2 > 90 BUN/Creatinine Ratio 23.2 H Glucose Level 116 H Calcium Level 9.2 Albumin 4.1 Chemistry Comments Medical Decision Making Findings Differential diagnosis includes but is not limited to: Anxiety, nausea and vomiting Laboratory data independent interpretation: CBC: Remarkable CMP: Mild hypokalemia with a potassium of 3.1 Emergency department course/medical decision-making: Patient is a 44-year-old woman who comes in complaining of recurrent and intractable nausea and vomiting secondary to her anxiety. Patient is given 1 L of normal saline and given Valium 5 mg IV for anxiety and Haldol 5 mg IM for her nausea and vomiting. Patient is mildly hypokalemic. Patient is given 40 mEq of oral potassium. I believe this intractable nausea and vomiting secondary to her anxiety like she states. She has not had any other symptoms. No fever. In addition she has a normal abdominal exam. Patient is denying any abdominal pain. 4:30 a.m.: Patient re-evaluated. Patient states that her nausea is better. Patient will try drinking and eating. If patient is able to eat and drink she will be discharged home. 5:00 a.m.: Patient has started vomiting. Patient's IV was inadvertently dislodged and pulled. IV was replaced. Patient is ordered another Valium 5 mg IV, Compazine 10 mg IV and Protonix 40 mg IV. Once the patient is tolerating oral fluids and food she may be discharged home. Departure Time of Disposition: 04:50 Disposition: 01 HOME / SELF CARE / HOMELESS Impression: Primary Impression: Nausea and vomiting Qualified Codes: R11.2 - Nausea with vomiting, unspecified Additional Impressions: Hypokalemia Anxiety Condition: Improved Discharge Instructions: Hypokalemia, Nausea and Vomiting, Adult, [id number] Additional Instructions: FOLLOW UP WITH YOUR PRIMARY CARE DOCTOR NEEDED. RETURN IF YOUR SYMPTOMS RECUR. Education Educated: Patient Educated regarding: diagnosis, treatment, need for follow up Signature Scribe Signature: No scribe Attestation: No scribe RASHAD GREGORY MD Dec 17, 2024 04:51
[2024-12-17] MEDS: OLANZapine **IM** 10 mg inj. IM ONE (06:53)
[2024-12-17] MEDS ORDERED: PROC25SU31 RC (07:50)
[2024-12-17 07:54] VITALS: BP 117/71; PULSE 78; RESP 14; O2SAT 97
== END 2024-12-17 08:00 | disposition home or self-care (01) ==
LOC: ER 01:22
DX: R11.2 Nausea with vomiting, unspecified (principal); E87.6 Hypokalemia; F41.9 Anxiety disorder, unspecified; F31.9 Bipolar disorder, unspecified; F12.90 Cannabis use, unspecified, uncomplicated; Z90.49 Acquired absence of other specified parts of digestive tract; Z90.710 Acquired absence of both cervix and uterus; Z88.8 Allergy status to other drugs, medicaments and biological substances; Z88.5 Allergy status to narcotic agent; Z79.899 Other long term (current) drug therapy
CPT/HCPCS: 36415; 80048; 85025; 96361; 96372; 96374; 96375; 96376; 99285; J0780; J1630; J2470; J3360; J3490; J7030

== ENCOUNTER 2025-02-04 00:50 | Emergency (ER) | payer MEDICAID ==
[~2025-02-04] VITALS: Ht 167.6 cm; Wt 80.0 kg
[2025-02-04 00:53] VITALS: TEMP 97.4
[2025-02-04] MEDS: normal saline 1000ML IV soln IVB ONE (01:30)
--- NOTE | 2025-02-04 01:32 | Physician Documentation ---
History of Present Illness Chief Complaint: Vomiting Stated Complaint: VOMITING Time Seen by MD: 01:26 Primary Medical Doctor: DR. AYLEEN TOSCANO This is a pleasant 44-year-old female with a known history of anxiety who presents for evaluation of nausea, vomiting for the last three days. She feels this coincided with her changing her medications. She stopped BuSpar and Abilify, she was supposed to start on Pristiq and Atarax. however not able to take in due to severe nausea or vomiting. Unable to keep down any food. Has been trying to hydrate with water and Gatorade without much success. She did take both Zofran and Reglan without success. She attributed this nausea or vomiting to her anxiety. She also reports crampy epigastric abdominal pain that began after multiple episodes of vomiting. No palliating or aggravating factors. No concern for tobacco, alcohol or illicit substances use Medication Reconciliation Allergies: Coded Allergies: paroxetine HCl (Verified Allergy, Unknown, 02/04/25) morphine (Verified Adverse Reaction, Unknown, 02/04/25) Itchy, aggitation Scheduled Aripiprazole (Abilify), 1 TAB PO HS, (Reported) Buspirone HCl (Buspirone HCl), 1 TABLET PO BID, (Reported) Metoclopramide HCl (Reglan), 1 TAB PO Q8H Ondansetron 8mg ODT (Ondansetron Odt), 1 TAB PO Q8H Pantoprazole Sodium (PROTONIX tablet), 1 TAB PO DAILY Pantoprazole Sodium (PROTONIX tablet), 40 MG PO BID Propranolol Hcl (Propranolol Hcl), 1 TAB PO BID, (Reported) Scheduled PRN Alprazolam (Alprazolam), 1 TABLET PO BID PRN for anxiety, (Reported) Lorazepam (Ativan), 1 TAB PO Q12H PRN PRN for anxiety Metoclopramide HCl (Reglan), 1 TAB PO Q6H PRN for nausea/vomiting Ondansetron Hcl (Zofran), 4 MG PO Q6H PRN PRN for nausea/vomiting Past Medical History Past Medical History: *GI/HEPATOBILIARY*, *MUSCULOSKELETAL*, Anxiety Past Surgical History: cholecystectomy, hysterectomy, orthopedic surgeries Other Past Surgical History: pyloric sphincter dilation Alcohol Use: None Drug Use: marijuana Lives with: Spouse Lives In: Home Occupation: employed Review of Systems ROS 10 point review of systems was performed and unless noted above in HPI is negative for acute process/complaint. Physical Exam Vital Signs: Temperature: 97.4, Source: Temporal, Heart Rate: 75, Respiratory Rate: 16, BP: 112/77, Pulse Oximetry: 99, Weight: 80.000 Physical Exam GENERAL: Awake, alert, oriented, GCS 15, no apparent distress, non-toxic appearing, answers questions, follows commands appropriately. HEENT: Atraumatic, normocephalic, pupils equal, extraocular muscles intact, sclerae anicteric, mucus membranes moist, oropharynx is clear, no stridor. NECK: supple, full active range of motion, trachea midline, no thyromegaly, no lymphadenopathy, no JVD. CARDIOVASCULAR: regular rate/rhythm, no murmurs/gallops/rubs, Pulses are 2+ in all extremities and symmetric. Capillary refill less than 2 seconds. PULMONARY: Nonlabored, good air movement ,no respiratory distress, speaking in full sentences, clear to auscultation bilaterally, no wheezing, no ronchi, no rales, no accessory muscle use. GASTROINTESTINAL: Soft, non-tender, non-distended, normal active bowel sounds, no organomegaly, no pulsatile masses, no CVA tenderness. NEUROLOGIC: Lucid with normal mental status. Normal facial symmetry. Moves all extremities symmetrically and with purpose. No truncal ataxia. Speech is fluid without evidence of dysarthria or aphasia, no focal deficits appreciated. MUSCULOSKELETAL: There is full range of motion of all extremities. There is no joint pain or joint swelling or joint erythema. There is no muscle pain or tenderness or swelling. EXTREMITIES: warm, well-perfused, no cyanosis, no clubbing, no edema, no acute deformities. Skin: warm, dry, no rashes or lesions, no jaundice, no petechiae orpurpura. No ecchymosis. PSYCHIATRIC: Normal affect, normal insight, normal concentration. Focused exam: [] Progress Results/Orders Results/Orders Vital Signs 02/04/25 00:53 Temp 97.4 Pulse 75 Resp 16 B/P (MAP) 112/77 Pulse Ox 99 EKG/XRAY/CT/US/VASC/MRI EKG : Additional Comment EKG was obtained and interpreted by myself showing sinus rhythm, rate of 57, normal UT interval, borderline QRS of 109, no QT prolongation, normal axis, no STEMI. Medical Decision Making Findings Facility Status: ED Holds, RME process The plan was discussed with the patient, who demonstrates clear understanding of the plan and is in agreement with the plan unless otherwise noted in the chart. All questions have been answered, all concerns were addressed unless otherwise documented. I was available throughout their ED stay for frequent reassessment and questions. Differential Diagnoses (considered and possible or likely): [Differential diagnosis considered includes psychogenic vomiting, anxiety induced vomiting, preformed toxin ingestion, dehydration, electrolyte derangement, acute appendicitis, acute cholecystitis, pancreatitis, gastritis, PUD, diverticulitis, mesenteric ischemia, abdominal aortic aneurysm, bowel obstruction, enteritis, colitis, fecal impaction, volvulus, IBS, inflammatory bowel disease, specific food intolerance, peritonitis, perforated viscous, malignancy, UTI, abscess, and abdominal pain NOS. Pelvic source of pain was also considered including endometritis, dysmenorrhea, ovarian cyst, ovarian torsion, PID, TOA, cervicitis, vaginitis, or uterine fibroid. History, physical exam, and workup exclude many of the more serious causes listed above. ] ??Differential Diagnoses (considered and unlikely, not requiring evaluation currently): [See above] MDM Data Please see HPI for the following: Independent Historians and external Records Review. Historian: [Patient] Independent Historians: ?[Record review] Medication Management: [Reviewed medication list] Social History and determinants: [Reviewed] Please see the body of the note for the following: Any independent interpretations of ECG, imaging studies. All vitals signs/haemodynamics, ordered tests were independently reviewed and in terpreted by myself. Nursing triage complaint and vitals reviewed, additional nursing notes were reviewed as available and I agree unless otherwise noted or documented in contradiction in the chart Vital Signs: Independently reviewed Labs: Independently interpreted Imaging: Independently interpreted Old Medical Records: Independently reviewed, see HPI for relevant summary and information Pulse Oximetry: [97%] interpreted as [normal on room air] by me Additionally notably showing: [Hemodynamics reviewed. The patient isn't febrile, not tachycardic, no evidence of hypotension respiratory distress. CBC is normal. No leukocytosis, no anemia, normal platelets. Chemistry shows slightly elevated calcium, likely related to hemo concentration. Mild decrease in potassium. Normal thyroid studies. She is not . Troponin is negative. Ethanol is negative.] Tests considered but not ordered include: [Imaging does not appear to be necessary] Social Determinants of Health Impact: Patient was evaluated in [facility], or [facility] [place] to healthcare due to below par ratio of patient to medical providers. [] Comorbid Conditions Impacting Present Evaluation and Care/Treatment: [History of anxiety, recent medication change] Management Discussions with other Healthcare Providers: [None] Treatment and Disposition Medication Management (Given or considered): [Antiemetics, anxiolytics]. See EMR for details Consideration for Hospitalization/Escalation/Deescalation of Care: Admission for observation has been considered, [however the patient is able to tolerate p.o., their symptoms are controlled, they are able to rely on oral medications, and their chief complaint/diagnosis can be managed on outpatient basis.] ?ED Course:?[Date: Feb 04, 2025 Time: 03:43 the patient feels markedly better, desires to be discharged. ] ?Shared decision making:?[Patient is hemodynamically stable for discharge home with follow with their primary care provider. [ ] Specific and cautious return precautions provided and discussed with full understanding. Any incidental findings were also discussed and follow up recommendations given. [] All questions answered. Patient/family were able to verbalize back return precautions. Patient/family agree to plan. Copies of imaging and laboratory studies were provided.] Code status:?FULL Please see the full Electronic Medical Record for full details of nursing documentation, medications list, other records of complete past medical history and conditions, vital signs, laboratory studies, and any radiologic study interpretations by radiologists. Portions of this note were completed using [employer] dictation software and as a result there may exist minor errors in spelling. I have reviewed elements of past family and social history and agree as included in note. Departure Disposition: 01 HOME / SELF CARE / HOMELESS Impression: Primary Impression: Nausea and vomiting Additional Impression: Anxiety Condition: Improved Discharge Instructions: Nausea and Vomiting, Adult Referrals: NO PRIMARY CARE PROVIDER (PCP) Education Educated: Patient Educated regarding: diagnosis, treatment, prognosis, need for follow up Signature Scribe Signature: No scribe Attestation: This note accurately reflects clinical decisions, work performed by myself, DO MARYANN Anderson NICHOLAS M DO Feb 04, 2025 01:32
[2025-02-04 02:11] LABS: MEAN PLATELET VOLUME 10.5 FL (7.4-10.4); RED CELL DISTRIBUTION WIDTH 13.7 % (11.5-14.5)
[2025-02-04 02:20] LABS: CREATININE 0.74 MG/DL (0.40-0.90); TOTAL CARBON DIOXIDE 23.8 MMOL/L (24-32); eCRCL 91 ML/MIN; eGFR 85 ML/MIN
[2025-02-04 02:23] LABS: HCG SERUM QL NEGATIVE
[2025-02-04] MEDS: diazepam inj 5 MG/ML inj. IV ONE (02:30)
[2025-02-04 02:33] LABS: ETHANOL < 10 MG/DL (<10)
[2025-02-04 03:23] VITALS: BP 122/89; PULSE 100; RESP 16; O2SAT 94
--- NOTE | 2025-02-04 07:07 | ELECTROCARDIOGRAPH REPORT ---
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
== END 2025-02-04 03:53 | disposition home or self-care (01) ==
LOC: ER 00:51
DX: R11.2 Nausea with vomiting, unspecified (principal); F41.9 Anxiety disorder, unspecified; F12.90 Cannabis use, unspecified, uncomplicated; Z88.5 Allergy status to narcotic agent; Z88.8 Allergy status to other drugs, medicaments and biological substances; Z90.49 Acquired absence of other specified parts of digestive tract; Z90.710 Acquired absence of both cervix and uterus; Z79.899 Other long term (current) drug therapy
CPT/HCPCS: 36415; 80053; 80320; 83690; 83735; 84439; 84443; 84484; 84703; 85025; 93005; 96361; 96374; 96375; 99284; J0780; J3360; J7030

== ENCOUNTER 2025-02-06 02:43 | Emergency (ER) | payer MEDICAID ==
[~2025-02-06] VITALS: Ht 167.6 cm; Wt 73.0 kg
[2025-02-06] MEDS: normal saline 1000ml 1,000 ML IV ONE (03:13)
[2025-02-06 03:24] LABS: MEAN PLATELET VOLUME 10.0 FL (7.4-10.4); RED CELL DISTRIBUTION WIDTH 13.2 % (11.5-14.5)
[2025-02-06] MEDS: ondansetron/PF 4mg/2ml inj IV ONE (03:30)
[2025-02-06 03:38] LABS: CREATININE 0.56 MG/DL (0.40-0.90); TOTAL CARBON DIOXIDE 24.5 MMOL/L (24-32); eCRCL 120 ML/MIN; eGFR > 90 ML/MIN
--- NOTE | 2025-02-06 05:16 | Physician Documentation ---
History of Present Illness ~ Chief Complaint: Vomiting Stated Complaint: VOMITING Time Seen by MD: 02:59 Primary Medical Doctor: DR. ABBASI Mode of Arrival: POV, Ambulatory HPI Nausea and vomiting "from a panic attack." Has been seen in our ER for similar complaints. Medication Reconciliation Allergies: Coded Allergies: paroxetine HCl (Verified Allergy, Unknown, 02/04/25) morphine (Verified Adverse Reaction, Unknown, 02/04/25) Itchy, aggitation Scheduled Aripiprazole (Abilify), 1 TAB PO HS, (Reported) Buspirone HCl (Buspirone HCl), 1 TABLET PO BID, (Reported) Metoclopramide HCl (Reglan), 1 TAB PO Q8H Ondansetron 8mg ODT (Ondansetron Odt), 1 TAB PO Q8H Pantoprazole Sodium (PROTONIX tablet), 1 TAB PO DAILY Pantoprazole Sodium (PROTONIX tablet), 40 MG PO BID Propranolol Hcl (Propranolol Hcl), 1 TAB PO BID, (Reported) Scheduled PRN Alprazolam (Alprazolam), 1 TABLET PO BID PRN for anxiety, (Reported) Lorazepam (Ativan), 1 TAB PO Q12H PRN PRN for anxiety Metoclopramide HCl (Reglan), 1 TAB PO Q6H PRN for nausea/vomiting Ondansetron Hcl (Zofran), 4 MG PO Q6H PRN PRN for nausea/vomiting Past Medical History Past Medical History: *GI/HEPATOBILIARY*, *MUSCULOSKELETAL*, Anxiety Past Surgical History: cholecystectomy, hysterectomy, orthopedic surgeries Other Past Surgical History: pyloric sphincter dilation Alcohol Use: None Drug Use: marijuana Lives with: Spouse Lives In: Home Occupation: employed Review of Systems All Other Systems at this time: Reviewed and Negative Physical Exam Vital Signs: RN Vital Signs have been reviewed: Yes, Temperature: 97.8, Source: Oral, Heart Rate: 60, Respiratory Rate: 16, BP: 99/58, Pulse Oximetry: 99, Weight: 73.000 Oxygen Flow Rate: 0 Physical Exam HEENT: PERRL, moist oral mucosa, EOMI Pulmonary: No respiratory distress MSK: no deformity Skin: w/d/i, no rash Neuro: alert, nonfocal Psych: normal affect Progress Results/Orders Results/Orders Completed Orders - LALITA MARCOS MD Cbc/Diff (02/06/25 02:52) BMP (02/06/25 02:52) Lipase (02/06/25 02:52) CMP (02/06/25 02:52) Normal Saline 1000ml (0.9% Sodium Chlori (02/06/25 03:00) Ondansetron Inj. (Zofran 4mg/2ml Vial) (02/06/25 03:00) Diphenhydramine Inj (Benadryl Inj.) (02/06/25 03:00) Prochlorperazine Inj (Compazine Inj) (02/06/25 03:25) Lorazepam Inj (Ativan Inj) (02/06/25 03:25) Vital Signs 02/06/25 02/06/25 02/06/25 02/06/25 02:47 03:19 03:19 04:08 Temp 97.8 Pulse 65 90 61 Resp 16 16 16 16 B/P (MAP) 126/83 121/74 (90) 120/77 (91) Pulse Ox 99 98 97 O2 Flow Rate 0 02/06/25 02/06/25 02/06/25 04:55 05:24 05:59 Temp 97.8 Pulse 60 61 97 Resp 16 16 B/P (MAP) 99/58 (72) 98/61 (73) 127/77 Pulse Ox 99 97 96 Laboratory Tests Test 02/06/25 03:14 White Blood Count 10.3 Red Blood Count 4.79 Hemoglobin 15.3 Hematocrit 44.6 Mean Corpuscular Volume 93.1 Mean Corpuscular Hemoglobin 32.0 H Mean Corpuscular Hemoglobin Concent 34.4 Red Cell Distribution Width 13.2 Platelet Count 201 Mean Platelet Volume 10.0 Neutrophils (%) (Auto) 58.1 Lymphocytes (%) (Auto) 31.9 Monocytes (%) (Auto) 8.4 Eosinophils (%) (Auto) 1.3 Basophils (%) (Auto) 0.3 Neutrophils # (Auto) 6.0 Lymphocytes # (Auto) 3.3 Monocytes # (Auto) 0.9 Eosinophils # (Auto) 0.1 Basophils # (Auto) 0.0 CBC Comment Sodium Level 137 Potassium Level 3.0 *L Chloride Level 102 Carbon Dioxide Level 24.5 Anion Gap 11 Blood Urea Nitrogen 9 Creatinine 0.56 Estimated GFR/1.73 m2 > 90 BUN/Creatinine Ratio 16.1 Glucose Level 108 H Calcium Level 9.3 Total Bilirubin 0.9 Aspartate Amino Transf (AST/SGOT) 18 Alanine Aminotransferase (ALT/SGPT) 36 Alkaline Phosphatase 76 Total Protein 7.0 Albumin 4.0 Globulin 3.0 Albumin/Globulin Ratio 1.3 Lipase 19 Chemistry Comments Medical Decision Making Findings 44 year old female with vomiting and anxiety. No red flags, medications provided, improved on reevaluation, discharged with return precautions. Additional Comments Ddx = CHS, gastroparesis, bowel obstruction, food poisoning, viral gastroenteritis Departure Disposition: HOME / SELF CARE / HOMELESS Impression: Primary Impression: Nausea and vomiting Condition: Stable Discharge Instructions: Nausea and Vomiting, Adult Referrals: NO PRIMARY CARE PROVIDER (PCP) Education Educated: Patient Educated regarding: diagnosis, treatment, prognosis, need for follow up Signature Scribe Signature: . Attestation: . LALITA MARCOS MD Feb 06, 2025 05:16
[2025-02-06 05:24] VITALS: RESP 16
[2025-02-06 05:59] VITALS: BP 127/77; PULSE 97; TEMP 97.8; O2SAT 96
== END 2025-02-06 06:01 | disposition home or self-care (01) ==
LOC: ER 02:43
DX: R11.2 Nausea with vomiting, unspecified (principal); F41.0 Panic disorder [episodic paroxysmal anxiety]; F12.90 Cannabis use, unspecified, uncomplicated; Z88.5 Allergy status to narcotic agent; Z88.8 Allergy status to other drugs, medicaments and biological substances; Z90.49 Acquired absence of other specified parts of digestive tract; Z90.710 Acquired absence of both cervix and uterus; Z79.899 Other long term (current) drug therapy
CPT/HCPCS: 36415; 80053; 83690; 85025; 96361; 96374; 96375; 99285; J0780; J1200; J2060; J2405; J7030

== ENCOUNTER 2025-02-16 05:42 | Emergency (ER) | payer MEDICAID ==
[~2025-02-16] VITALS: Ht 167.6 cm; Wt 73.6 kg
[2025-02-16 05:49] VITALS: TEMP 97
--- NOTE | 2025-02-16 06:30 | Physician Documentation ---
History of Present Illness General Chief Complaint: Vomiting Stated Complaint: VOMITING Time Seen by MD: 06:30 Primary Medical Doctor: DR. ABBASI History of Present Illness Initial Comments The patient is a 44-year-old female who states she is got a history of cyclic vomiting and anxiety. The patient states around three in the morning she develops nausea and vomiting and is unable to hold anything down. Patient states last time she was in the emergency department she received medication wh ich made her symptoms improved dramatically and she is requesting the same thing. The patient is also requesting some medication that may assist her from having these episodes of nausea vomiting in the morning. Patient denies any fevers chills. Patient's symptoms are moderate persistent Medication Reconciliation Allergies: Coded Allergies: paroxetine HCl (Verified Allergy, Unknown, 02/04/25) morphine (Verified Adverse Reaction, Unknown, 02/04/25) Itchy, aggitation Scheduled Aripiprazole (Abilify), 1 TAB PO HS, (Reported) Buspirone HCl (Buspirone HCl), 1 TABLET PO BID, (Reported) Metoclopramide HCl (Reglan), 1 TAB PO Q8H Ondansetron 8mg ODT (Ondansetron Odt), 1 TAB PO Q8H Pantoprazole Sodium (PROTONIX tablet), 1 TAB PO DAILY Pantoprazole Sodium (PROTONIX tablet), 40 MG PO BID Propranolol Hcl (Propranolol Hcl), 1 TAB PO BID, (Reported) Ziprasidone Hcl (Geodon), 1 CAP PO DAILY Scheduled PRN Alprazolam (Alprazolam), 1 TABLET PO BID PRN for anxiety, (Reported) Lorazepam (Ativan), 1 TAB PO Q12H PRN PRN for anxiety Metoclopramide HCl (Reglan), 1 TAB PO Q6H PRN for nausea/vomiting Ondansetron Hcl (Zofran), 4 MG PO Q6H PRN PRN for nausea/vomiting Past Medical History Past Medical History: *GI/HEPATOBILIARY*, *MUSCULOSKELETAL*, Anxiety Past Surgical History: cholecystectomy, hysterectomy, orthopedic surgeries Other Past Surgical History: pyloric sphincter dilation Smoking: Other Alcohol Use: None Drug Use: marijuana Lives with: Spouse Lives In: Home Occupation: employed Review of Systems All Other Systems at this time: Reviewed and Negative Physical Exam Physical Exam Vital Signs: Temperature: 97.0, Heart Rate: 75, Respiratory Rate: 18, BP: 10/75, Pulse Oximetry: 95, Weight: 73.600 Oxygen Flow Rate: 0 Physical Exam VITALS: Reviewed and as above. GENERAL: Alert, no apparent distress. HEENT: Normocephalic, atraumatic, PERRL, EOMI, dry mucosa, no erythema RESPIRATORY: Lungs clear, normal breath sounds, no respiratory distress. CHEST: No accessory muscle use, no retractions CV: Regular rate, rhythm, no edema, no murmur, No: JVD GI: Soft, non-tender, bowels sounds present, no rebound, guarding, or rigidity BACK: No CVA tenderness, or swelling MUSCULOSKELETAL No deformities, no edema SKIN: Warm and dry, no rash NEURO: Oriented x4, No motor or sensory deficit PSYCH: Normal mood and affect, no agitation Progress Results/Orders Results/Orders Completed Orders - OHLBARAK,LORETTA Frances MD Normal Saline 1000ml (0.9% Sodium Chlori (02/16/25 06:55) Diphenhydramine Inj (Benadryl Inj.) (02/16/25 06:55) Prochlorperazine Inj (Compazine Inj) (02/16/25 06:55) Lorazepam Inj (Ativan Inj) (02/16/25 06:55) Vital Signs 02/16/25 02/16/25 02/16/25 02/16/25 05:49 06:36 06:41 07:24 Temp 97.0 Pulse 75 60 Resp 18 15 15 15 B/P (MAP) 10/75 104/68 (80) Pulse Ox 95 98 O2 Flow Rate 0 02/16/25 08:18 Pulse 65 Resp 15 B/P (MAP) 115/78 Pulse Ox 100 Laboratory Tests Test 02/16/25 06:36 02/16/25 06:51 Urine Specimen Description Urinal Urine Color Yellow Urine Clarity Cloudy Urine pH 5.5 Urine Specific [place] >=1.030 Urine Protein 100 H Urine Glucose (UA) Negative Urine Ketones Negative Urine Occult Blood Large H Urine Nitrite Negative Urine Bilirubin Small Urine Urobilinogen 0.2 Urine Leukocyte Esterase Moderate H Urine RBC 20-50 Urine WBC Tntc H Urine WBC Clumps Few Urine Squamous Epithelial Cells Moderate Urine Transitional Epithelial Cells Moderate Urine Bacteria 3+ Urine Mucus None seen Urine Culture Indicated Indicated Volume Urine Centrifuged 9 ml Urine HCG, Qualitative Negative Urine Comment Low volume White Blood Count 10.8 Red Blood Count 4.79 Hemoglobin 15.2 Hematocrit 45.2 H Mean Corpuscular Volume 94.3 Mean Corpuscular Hemoglobin 31.7 H Mean Corpuscular Hemoglobin Concent 33.6 Red Cell Distribution Width 13.8 Platelet Count 248 Mean Platelet Volume 10.1 Neutrophils (%) (Auto) 75.0 Lymphocytes (%) (Auto) 14.1 L Monocytes (%) (Auto) 9.1 Eosinophils (%) (Auto) 1.5 Basophils (%) (Auto) 0.3 Neutrophils # (Auto) 8.1 H Lymphocytes # (Auto) 1.5 Monocytes # (Auto) 1.0 H Eosinophils # (Auto) 0.2 Basophils # (Auto) 0.0 CBC Comment Sodium Level 138 Potassium Level 4.2 Chloride Level 105 Carbon Dioxide Level 23.4 L Anion Gap 10 Blood Urea Nitrogen 10 Creatinine 0.66 Estimated GFR/1.73 m2 > 90 BUN/Creatinine Ratio 15.2 Glucose Level 127 H Calcium Level 9.0 Total Bilirubin 0.6 Aspartate Amino Transf (AST/SGOT) 17 Alanine Aminotransferase (ALT/SGPT) 29 Alkaline Phosphatase 89 Total Protein 7.1 Albumin 3.6 Globulin 3.5 Albumin/Globulin Ratio 1.0 L Lipase 22 Chemistry Comments Microbiology Date/Time Source Procedure Growth Status 02/16/25 07:17 Urine Urinal (Er Only) Urine Culture - Preliminary Culture received. Resulted Medical Decision Making Findings Patient is a 44-year-old female with a history of cyclic vomiting, patient states she has recently been started on desvenlafaxine, she is requesting medication that may help her with her nausea and vomiting that occurs every morning around four in the morning given this finding I discussed the utility of antipsychotics for chronic nausea and vomiting she is willing to try Geodon. The patient will be prescribed Geodon to take nightly in the hopes that it can while her a.m. nausea and vomiting. Patient has been advised take one pill at night she has also been told that she could increase it to two pills at night if she needs to. The patient's labs were reviewed patient's prior hospitalizations have been reviewed she has a benign exam the patient's pulse oximetry was interpreted as adequate normal the patient was given a cocktail of medications for her nausea as well as IV fluid here in the emergency room she was discharged Departure Disposition: HOME / SELF CARE / HOMELESS Impression: Primary Impression: Cyclic vomiting syndrome Discharge Instructions: Nausea and Vomiting, Adult Additional Instructions: Take 20 mg of Geodon at night. You can increase it to 40 mg at night if needed. Return for worsening of her symptoms. Follow up with her healthcare providers soon as possible. Referrals: NO PRIMARY CARE PROVIDER (PCP) Prescriptions Ziprasidone Hcl (GEODON) 20 Mg Capsule 1 CAP PO DAILY, #30 CAP 0 Refills Take at night Prov: LORETTA BREWSTER MD 02/16/25 Signature Scribe Signature: no scribe Attestation: The note accurately reflects work and decisions made by me.Loretta Brewster MD 02/16/25 15:21 LORETTA BREWSTER MD Feb 16, 2025 06:30
[2025-02-16] MEDS ORDERED: ZIPR20CA2 PO (06:57)
[2025-02-16 07:02] LABS: LEUKOCYTE ESTERASE ,URINE MODERATE (Neg); OCCULT BLOOD,URINE LARGE (Neg)
[2025-02-16 07:06] LABS: MEAN PLATELET VOLUME 10.1 FL (7.4-10.4); RED CELL DISTRIBUTION WIDTH 13.8 % (11.5-14.5)
[2025-02-16 07:13] LABS: UA COLLECTION TYPE URINAL
[2025-02-16 07:14] LABS: NITRITES, URINE NEGATIVE (Neg)
[2025-02-16 07:16] LABS: MUCUS STRANDS NONE SEEN /LPF (Neg); SQUAMOUS EPITHELIAL CELL,UR MODERATE /LPF (FEW); WBC CLUMPS,URINE FEW /HPF (NEGATIVE)
[2025-02-16] MEDS: normal saline 1000ML IV soln IVB ONE (07:24)
[2025-02-16 07:27] LABS: URINE HCG NEGATIVE (NEG)
[2025-02-16 07:35] LABS: CREATININE 0.66 MG/DL (0.40-0.90); eCRCL 102 ML/MIN; eGFR > 90 ML/MIN
[2025-02-16 07:49] LABS: TOTAL CARBON DIOXIDE 23.4 MMOL/L (24-32)
[2025-02-16 08:18] VITALS: BP 115/78; PULSE 65; RESP 15; O2SAT 100
== END 2025-02-16 08:21 | disposition home or self-care (01) ==
LOC: ER 05:42
DX: R11.2 Nausea with vomiting, unspecified (principal); F41.9 Anxiety disorder, unspecified; F12.90 Cannabis use, unspecified, uncomplicated; Z88.5 Allergy status to narcotic agent; Z88.8 Allergy status to other drugs, medicaments and biological substances; Z90.49 Acquired absence of other specified parts of digestive tract; Z90.710 Acquired absence of both cervix and uterus; Z79.899 Other long term (current) drug therapy
CPT/HCPCS: 36415; 80053; 81001; 81025; 83690; 85025; 87077; 87088; 87186; 96361; 96374; 96375; 99284; J0780; J1200; J2060; J7030

== ENCOUNTER 2025-03-12 09:45 | Emergency (ER) | payer MEDICAID ==
[~2025-03-12] VITALS: Ht 167.6 cm; Wt 73.2 kg
[~2025-03-12 09:45] MED LIST changes: +ZIPR20CA2 PO
[2025-03-12 10:53] LABS: MEAN PLATELET VOLUME 10.7 FL (7.4-10.4); RED CELL DISTRIBUTION WIDTH 13.4 % (11.5-14.5)
[2025-03-12 11:08] LABS: CREATININE 0.69 MG/DL (0.40-0.90); TOTAL CARBON DIOXIDE 22.7 MMOL/L (24-32); eCRCL 97 ML/MIN; eGFR > 90 ML/MIN
--- NOTE | 2025-03-12 11:08 | Physician Documentation ---
History of Present Illness ~ Chief Complaint: Vomiting Stated Complaint: VOMITING Time Seen by MD: 10:51 Primary Medical Doctor: DR. ABBASI Source: patient Mode of Arrival: POV Exam Limitations: no limitations HPI 44-year-old female with chief complaint vomiting that is been going on for the past five days. Precipitating event was having to take her dog to the vet and a very large vet bill. Patient states that this caused her to have more than her baseline anxiety and precipitated the vomiting. Patient states that anxiety is the cause of her vomiting. Patient does use marijuana but states only occasionally and has not used any recently. Patient denies fever, chills, blood in her emesis, diarrhea, abdominal pain. Patient tried to take her Reglan that she has at home for this but was unable to keep down. Patient is also on Pristiq and Geodon. Medication Reconciliation Allergies: Coded Allergies: paroxetine HCl (Verified Allergy, Unknown, 03/12/25) morphine (Verified Adverse Reaction, Unknown, 03/12/25) Itchy, aggitation Scheduled Aripiprazole (Abilify), 1 TAB PO HS, (Reported) Buspirone HCl (Buspirone HCl), 1 TABLET PO BID, (Reported) Metoclopramide HCl (Reglan), 1 TAB PO Q8H Ondansetron 8mg ODT (Ondansetron Odt), 1 TAB PO Q8H Pantoprazole Sodium (PROTONIX tablet), 1 TAB PO DAILY Pantoprazole Sodium (PROTONIX tablet), 40 MG PO BID Propranolol Hcl (Propranolol Hcl), 1 TAB PO BID, (Reported) Ziprasidone Hcl (Geodon), 1 CAP PO DAILY Scheduled PRN Alprazolam (Alprazolam), 1 TABLET PO BID PRN for anxiety, (Reported) Lorazepam (Ativan), 1 TAB PO Q12H PRN PRN for anxiety Metoclopramide HCl (Reglan), 1 TAB PO Q6H PRN for nausea/vomiting Ondansetron Hcl (Zofran), 4 MG PO Q6H PRN PRN for nausea/vomiting Past Medical History Past Medical History: *GI/HEPATOBILIARY*, *MUSCULOSKELETAL*, Anxiety Past Surgical History: cholecystectomy, hysterectomy, orthopedic surgeries Other Past Surgical History: pyloric sphincter dilation Alcohol Use: None Drug Use: marijuana Lives with: Spouse Lives In: Home Occupation: employed Review of Systems All Other Systems at this time: Reviewed and Negative Physical Exam Vital Signs: Temperature: 96.5, Source: Temporal, Heart Rate: 64, Respiratory Rate: 16, BP: 142/87, Pulse Oximetry: 99, Weight: 73.200 Oxygen Flow Rate: 0 Physical Exam GENERAL: Alert, no acute distress. HEENT: NCAT, EOMI, PERRL, normal oropharynx, moist oral mucosa. NECK: Supple, trachea midline. CARDIAC: Regular rate and rhythm, no murmurs, rubs, or gallops. Equal distal pulses. No lower extremity edema, cap refill less than 2 seconds. RESPIRATORY: Equal breath sounds, clear to auscultation bilaterally, no respiratory distress. GASTROINTESTINAL: Non distended, soft, nontender, No guarding or rebound. MUSCULOSKELETAL: Normal range of motion, nontender, no swelling. Normal gait. NEUROLOGICAL: Awake, alert, and oriented x 3. SKIN: Warm/dry, no pallor, no rash. PSYCH: Alert and appropriate. Affect congruent with mood. Speech is clear. Good eye contact. Progress Results/Orders Reviewed/noted all lab results: Yes Results/Orders Completed Orders - TANYA JAVIER Normal Saline 1000ml (0.9% Sodium Chlori (03/12/25 11:05) Prochlorperazine Inj (Compazine Inj) (03/12/25 11:01) Diphenhydramine Inj (Benadryl Inj.) (03/12/25 11:10) Medications Received in ER Medications (Trade) Dose Ordered Sig/Shy Route PRN Reason Start Time Stop Time Status Last Admin Dose Admin (0.9% sodium chloride (NS) 1000ml IV soln) 1,000 ml ONCE ONCE IVB 03/12/25 11:05 03/12/25 11:06 DC 03/12/25 11:42 1,000 ML (Compazine inj) 5 mg STAT STAT IV 03/12/25 11:01 03/12/25 11:07 DC 03/12/25 11:43 5 MG (Benadryl inj.) 50 mg ONCE ONCE IV 03/12/25 11:10 03/12/25 11:11 DC 03/12/25 11:43 50 MG Vital Signs 03/12/25 10:07 Temp 96.5 Pulse 64 Resp 16 B/P (MAP) 142/87 Pulse Ox 99 O2 Flow Rate 0 Laboratory Tests Test 03/12/25 10:34 White Blood Count 8.6 Red Blood Count 4.88 Hemoglobin 15.5 Hematocrit 45.4 H Mean Corpuscular Volume 93.0 Mean Corpuscular Hemoglobin 31.7 H Mean Corpuscular Hemoglobin Concent 34.1 Red Cell Distribution Width 13.4 Platelet Count 195 Mean Platelet Volume 10.7 H Neutrophils (%) (Auto) 73.9 Lymphocytes (%) (Auto) 19.1 L Monocytes (%) (Auto) 5.7 Eosinophils (%) (Auto) 0.8 Basophils (%) (Auto) 0.5 Neutrophils # (Auto) 6.3 Lymphocytes # (Auto) 1.6 Monocytes # (Auto) 0.5 Eosinophils # (Auto) 0.1 Basophils # (Auto) 0.0 CBC Comment Platelet Estimate Normal Large Platelets Few Red Blood Cell Morphology Normal Basophilic Stippling Sodium Level 139 Potassium Level 4.4 Chloride Level 104 Carbon Dioxide Level 22.7 L Anion Gap 12 Blood Urea Nitrogen 9 Creatinine 0.69 Estimated GFR/1.73 m2 > 90 BUN/Creatinine Ratio 13.0 Glucose Level 134 H Calcium Level 9.5 Total Bilirubin 0.8 Aspartate Amino Transf (AST/SGOT) 33 Alanine Aminotransferase (ALT/SGPT) 35 Alkaline Phosphatase 90 Total Protein 7.6 Albumin 3.9 Globulin 3.7 Albumin/Globulin Ratio 1.1 Lipase 18 Chemistry Comments Re-Evaluation Re-Evaluation #1: Re-Evaluation: Unchanged Progress UNCHANGED AFTER IV FLUIDS AND COMPAZINE AND BENADRYL ADMINISTERED HERE IN ER UNABLE TO GIVE IV ATIVAN WE ARE OUT OF AND PATIENT UNABLE TO KEEP DOWN PO Re-Evaluation #2: Re-Evaluation Time: 12:06 Re-Evaluation: Unchanged Progress ORDER FOR HALDOL 5ML IV DUE TO UNRESOLVED/UNCHANGED SYMPTOMS Medical Decision Making Diff Dx N/V/D:Considerations: Include: Appendicitis, Bowel obstruction, Dehydration, DKA, Diarrhea - bacterial, Diarrhea - parasitic, Diarrhea - viral, Diverticulitis, Diverticulosis, Drug toxicity, Electrolyte imbalance, Food poisoning, Gastroenteritis, GE reflux, GI bleed, Hepatitis, Hernia, Hypovolemia, Hypotension, Inflammatory BD, Impaction, Malnutrition, Pancreatitis, , PUD, Renal failure, Urolithiasis, Urinary obstruction, UTI, Other Departure Time of Disposition: 12:07 Disposition: 01 HOME / SELF CARE / HOMELESS Impression: Primary Impression: Vomiting Qualified Codes: R11.2 - Nausea with vomiting, unspecified Additional Impression: Anxiety Condition: Stable Discharge Instructions: Nausea and Vomiting, Adult Additional Instructions: f/u with pcp next week your labs where normal, normal potassium at 4.4 return to er if symptoms return and unable to keep down the meds you have at home for this Referrals: NO PRIMARY CARE PROVIDER (PCP) Education Educated: Patient Educated regarding: diagnosis, treatment, need for follow up Signature Scribe Signature: x Attestation: TANYA Pierce Mar 12, 2025 11:08
[2025-03-12 11:14] LABS: LARGE PLATELETS FEW; PLATELET ESTIMATE NORMAL
[2025-03-12] MEDS: normal saline 1000ML IV soln IVB ONE (11:42)
[2025-03-12] MEDS: haloperidol lactate 5mg/ml inj IVH ONE (12:12)
[2025-03-12 12:44] VITALS: BP 121/86; PULSE 60; RESP 16; TEMP 98.5; O2SAT 98
== END 2025-03-12 12:45 | disposition home or self-care (01) ==
LOC: ER 09:46
DX: R11.10 Vomiting, unspecified (principal); F41.9 Anxiety disorder, unspecified; F12.90 Cannabis use, unspecified, uncomplicated; Z88.5 Allergy status to narcotic agent; Z88.8 Allergy status to other drugs, medicaments and biological substances; Z90.49 Acquired absence of other specified parts of digestive tract; Z90.710 Acquired absence of both cervix and uterus; Z79.899 Other long term (current) drug therapy; Z98.890 Other specified postprocedural states
CPT/HCPCS: 36415; 80053; 83690; 85008; 85025; 96361; 96374; 96375; 99284; J0780; J1200; J1630; J7030

== ENCOUNTER 2025-03-14 05:44 | Emergency (ER) | payer MEDICAID ==
[~2025-03-14] VITALS: Ht 167.6 cm; Wt 73.0 kg
[2025-03-14 05:47] VITALS: TEMP 97.7
[2025-03-14 06:50] LABS: CREATININE 0.67 MG/DL (0.40-0.90); TOTAL CARBON DIOXIDE 22.8 MMOL/L (24-32); eCRCL 100 ML/MIN; eGFR > 90 ML/MIN
[2025-03-14 07:01] LABS: MEAN PLATELET VOLUME 10.1 FL (7.4-10.4); RED CELL DISTRIBUTION WIDTH 13.2 % (11.5-14.5)
--- NOTE | 2025-03-14 07:03 | Physician Documentation ---
History of Present Illness ~ Chief Complaint: Vomiting Stated Complaint: VOMITING Time Seen by MD: 06:30 OK to notify your PCP?: Yes Primary Medical Doctor: DR. ABBASI Source: patient Mode of Arrival: POV Exam Limitations: no limitations HPI Chief Complaint: Nausea and vomiting Caveat: None Independent Historians: None History of Present Illness: Patient is a 44-year-old woman with a history of anxiety and cyclic vomiting syndrome. Patient states that she was here two days ago for same. Patient states that she has not gotten better and she has had continued nausea and vomiting. No diarrhea. Patient denies abdominal pain but states that she has some abdominal cramps from the repetitive dry heaves. Patient states that she is unable to keep her medications down. No fever. Patient denies any other associated symptoms. Medical Records reviewed: Patient's last ER visit was March 12 for the same. She is given Haldol Valium and Benadryl with no relief. This is the patient's 8th ER visit this year for the same or similar symptoms. Review of systems: All systems were reviewed and are negative except for what is indicated in the history of present illness. Review of systems: All systems were reviewed and are negative except for what is indicated in the history of present illness. Past Medical History: Anxiety, bipolar, frequent nausea and vomiting Past Surgical History: Cholecystectomy Social history: Tobacco use, denies other drug use, no alcohol use, no tobacco use Medications: Reviewed as documented Nursing Notes Allergies: Reviewed as documented in Nursing Notes Medication Reconciliation Allergies: Coded Allergies: paroxetine HCl (Verified Allergy, Unknown, 03/12/25) morphine (Verified Adverse Reaction, Unknown, 03/12/25) Itchy, aggitation Scheduled Aripiprazole (Abilify), 1 TAB PO HS, (Reported) Buspirone HCl (Buspirone HCl), 1 TABLET PO BID, (Reported) Metoclopramide HCl (Reglan), 1 TAB PO Q8H Ondansetron 8mg ODT (Ondansetron Odt), 1 TAB PO Q8H Pantoprazole Sodium (PROTONIX tablet), 1 TAB PO DAILY Pantoprazole Sodium (PROTONIX tablet), 40 MG PO BID Propranolol Hcl (Propranolol Hcl), 1 TAB PO BID, (Reported) Ziprasidone Hcl (Geodon), 1 CAP PO DAILY Scheduled PRN Alprazolam (Alprazolam), 1 TABLET PO BID PRN for anxiety, (Reported) Lorazepam (Ativan), 1 TAB PO Q12H PRN PRN for anxiety Metoclopramide HCl (Reglan), 1 TAB PO Q6H PRN for nausea/vomiting Ondansetron Hcl (Zofran), 4 MG PO Q6H PRN PRN for nausea/vomiting Past Medical History Past Medical History: *GI/HEPATOBILIARY*, *MUSCULOSKELETAL*, Anxiety Past Surgical History: cholecystectomy, hysterectomy, orthopedic surgeries Other Past Surgical History: pyloric sphincter dilation Alcohol Use: None Drug Use: marijuana Lives with: Spouse Lives In: Home Occupation: employed Review of Systems All Other Systems at this time: Reviewed and Negative ROS Patient denies any other acute symptoms other than above. All other systems are negative Physical Exam Vital Signs: RN Vital Signs have been reviewed: Yes, Temperature: 97.7, Heart Rate: 60, Respiratory Rate: 18, BP: 120/81, Pulse Oximetry: 98, Weight: 72.950 Oxygen Flow Rate: 0 Pulse Oximetry Reflects: adequate oxygenation Physical Exam General Appearance: Moderate distress, dry heaving HEENT: Normal OP, dry oral mucosa, PERRL, EOMI Neck: supple, normal ROM, trachea midline Pulmonary: No respiratory distress, CTA, BS equal Cardiac: RRR, no murmur, rub or gallop, GI: nondistended, soft, nontender, normal bowel sounds, no guarding, no rebound Extremities: normal ROM, no swelling, non-tender Skin: intact, dry, warm, no rashes Neuro: AAOx3, speech is clear, no focal motor weakness Psych: normal affect, good eye contact, no apparent hallucination, normal speech Progress Results/Orders Results/Orders Orders - RASHAD GREGORY MD Po Challenge (03/14/25 08:36) Completed Orders - RASHAD GREGORY MD Hcg, Ur Ql (03/14/25 05:51) Cbc/Diff (03/14/25 05:51) Lipase (03/14/25 05:51) CMP (03/14/25 05:51) Ringers Solution, Lacted (Lactated Ringe (03/14/25 07:00) Diazepam Inj (Valium Inj) (03/14/25 07:05) Haloperidol Lact. (Haldol) (03/14/25 07:05) Prochlorperazine Inj (Compazine Inj) (03/14/25 07:05) Electrocardiogram (03/14/25 07:03) Pantoprazole 40mg Iv (Protonix 40mg Iv) (03/14/25 07:05) Ondansetron Inj. (Zofran 4mg/2ml Vial) (03/14/25 08:55) Ua W/Microscopic, Cult If Ind (03/14/25 09:00) Medications Received in ER Medications (Trade) Dose Ordered Sig/Shy Route PRN Reason Start Time Stop Time Status Last Admin Dose Admin (lactated ringers solution) 2,000 ml ONCE ONCE IV 03/14/25 07:00 03/14/25 07:02 DC 03/14/25 07:16 2,000 ML (Valium inj) 5 mg ONCE ONCE IV 03/14/25 07:05 03/14/25 07:06 DC 03/14/25 07:15 5 MG (Haldol) 10 mg ONCE ONCE IM 03/14/25 07:05 03/14/25 07:06 DC 03/14/25 07:40 10 MG (Compazine inj) 10 mg ONCE ONCE IV 03/14/25 07:05 03/14/25 07:06 DC 03/14/25 07:14 10 MG (Protonix 40mg IV) 40 mg ONCE ONCE IV 03/14/25 07:05 03/14/25 07:06 DC 03/14/25 07:14 40 MG (Zofran 4mg/2ml vial) 4 mg ONCE ONCE IV 03/14/25 08:55 03/14/25 09:01 DC 03/14/25 09:05 4 MG Vital Signs 03/14/25 03/14/25 03/14/25 03/14/25 05:47 07:15 07:50 09:15 Temp 97.7 Pulse 60 50 47 Resp 18 16 23 15 B/P (MAP) 120/81 125/84 (98) 145/88 (107) Pulse Ox 98 95 99 O2 Flow Rate 0 Laboratory Tests Test 03/14/25 06:18 03/14/25 09:00 White Blood Count 8.2 Red Blood Count 4.70 Hemoglobin 14.9 Hematocrit 43.8 Mean Corpuscular Volume 93.1 Mean Corpuscular Hemoglobin 31.7 H Mean Corpuscular Hemoglobin Concent 34.1 Red Cell Distribution Width 13.2 Platelet Count 199 Mean Platelet Volume 10.1 Neutrophils (%) (Auto) 65.5 Lymphocytes (%) (Auto) 24.6 Monocytes (%) (Auto) 8.0 Eosinophils (%) (Auto) 1.6 Basophils (%) (Auto) 0.3 Neutrophils # (Auto) 5.4 Lymphocytes # (Auto) 2.0 Monocytes # (Auto) 0.7 Eosinophils # (Auto) 0.1 Basophils # (Auto) 0.0 CBC Comment Sodium Level 140 Potassium Level 3.6 Chloride Level 105 Carbon Dioxide Level 22.8 L Anion Gap 12 Blood Urea Nitrogen 7 Creatinine 0.67 Estimated GFR/1.73 m2 > 90 BUN/Creatinine Ratio 10.4 Glucose Level 117 H Calcium Level 9.2 Total Bilirubin 0.7 Aspartate Amino Transf (AST/SGOT) 20 Alanine Aminotransferase (ALT/SGPT) 33 Alkaline Phosphatase 82 Total Protein 7.2 Albumin 3.8 Globulin 3.4 Albumin/Globulin Ratio 1.1 Lipase 17 Chemistry Comments Urine Specimen Description Cln catch midstream Urine Color Yellow Urine Clarity Slightly cloudy Urine pH 6.0 Urine Specific [place] 1.020 Urine Protein Negative Urine Glucose (UA) Negative Urine Ketones 40 H Urine Occult Blood Negative Urine Nitrite Negative Urine Bilirubin Negative Urine Urobilinogen 0.2 Urine Leukocyte Esterase Negative Urine RBC 0-2 Urine WBC 0-4 Urine Squamous Epithelial Cells Many Urine Transitional Epithelial Cells Moderate Urine Renal Cells Few Urine Bacteria 2+ Urine Mucus Few Urine Culture Indicated Not ind Volume Urine Centrifuged 10 ml Urine HCG, Qualitative Negative Urine Comment Medical Decision Making Additional info obtained from: old records Findings Differential diagnosis includes but is not limited to: Cyclic vomiting syndrome, electrolyte abnormalities, dehydration, anxiety, acute kidney injury EKG independent interpretation: Performed at 7:28 a.m.. Sinus bradycardia, heart rate 46, normal axis, normal ST segments, QTC is normal at 420 Laboratory data independent interpretation: CBC: Unremarkable CMP: Unremarkable Urine : Negative Urinalysis: Contaminated specimen Emergency department course/medical decision-making: Patient presents with recurrent nausea and vomiting. Patient is given 2 L of LR, Valium 5 mg IV, Compazine 10 mg IV and Haldol 10 mg IM. Patient observed for a couple hours. Patient had continued nausea prior to p.o. challenge. Rosalva ent was given Zofran 4 mg IV. Patient is doing better now. Patient is wishing to go home. There was no evidence of a medical or surgical emergency. Patient's lab work is unremarkable. PATIENT HAS SOME CONTINUED NAUSEA. PATIENT WILL BE PRESCRIBED PHENERGAN SUPPOSITORIES TO TRY AT HOME. Consultation/communications: Diff Dx GI Bleed:Consideration: Include: Other (SEE ABOVE) Diff Dx Pain:Considerations: Include: Other (SEE ABOVE) Diff Dx N/V/D:Considerations: Include: Other (SEE ABOVE) Diff Dx Rectal:Considerations: Include: Other (SEE ABOVE) Departure Time of Disposition: 10:42 Disposition: 01 HOME / SELF CARE / HOMELESS Impression: Primary Impression: Cyclic vomiting syndrome Condition: Improved Discharge Instructions: Cyclic Vomiting Syndrome, Adult, Nausea and Vomiting, Adult Additional Instructions: TURNED TO THE ER IF YOUR SYMPTOMS RECUR. Prescriptions Promethazine Hcl (Promethegan) 25 Mg Supp.rect 25 MG RC Q6H PRN N/V, #15 SUPP Prov: RASHAD GREGORY MD 03/14/25 Education Educated: Patient Educated regarding: diagnosis, treatment, need for follow up Signature Scribe Signature: No scribe Attestation: No scribe RASHAD GREGORY MD Mar 14, 2025 07:03
[2025-03-14] MEDS: diazepam inj 5 MG/ML inj. IV ONE (07:15)
[2025-03-14] MEDS: ringers solution, lactated 1000ml IV soln IV ONE (07:16)
[2025-03-14] MEDS: haloperidol lactate 5mg/ml inj IM ONE (07:16)
--- NOTE | 2025-03-14 07:30 | ELECTROCARDIOGRAPH REPORT ---
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
[2025-03-14] MEDS: ondansetron/PF 4mg/2ml inj IV ONE (09:05)
[2025-03-14 09:15] VITALS: RESP 15
[2025-03-14 09:36] LABS: URINE HCG NEGATIVE (NEG)
[2025-03-14 09:37] LABS: LEUKOCYTE ESTERASE ,URINE NEGATIVE (Neg); NITRITES, URINE NEGATIVE (Neg); OCCULT BLOOD,URINE NEGATIVE (Neg)
[2025-03-14 09:56] LABS: UA COLLECTION TYPE CLN CATCH MIDSTREAM
[2025-03-14 09:57] LABS: MUCUS STRANDS FEW /LPF (Neg); RENAL CELLS, URINE FEW /HPF; SQUAMOUS EPITHELIAL CELL,UR MANY /LPF (FEW)
[2025-03-14] MEDS ORDERED: PROM25SU9 RC (10:45)
[2025-03-14 10:56] VITALS: BP 123/82; PULSE 85; O2SAT 99
== END 2025-03-14 10:57 | disposition home or self-care (01) ==
LOC: ER 05:45
DX: R11.15 Cyclical vomiting syndrome unrelated to migraine (principal); F12.90 Cannabis use, unspecified, uncomplicated; F31.9 Bipolar disorder, unspecified; F41.9 Anxiety disorder, unspecified; Z90.49 Acquired absence of other specified parts of digestive tract; Z90.710 Acquired absence of both cervix and uterus; Z88.5 Allergy status to narcotic agent; Z79.899 Other long term (current) drug therapy; Z98.890 Other specified postprocedural states
CPT/HCPCS: 36415; 80053; 81001; 81025; 83690; 85025; 93005; 96361; 96372; 96374; 96375; 99284; J0780; J1630; J2405; J2470; J3360; J7120